=== PATIENT | male | born 1945 | race Caucasian/White ===

== ENCOUNTER → 2016-09-15 | Day surgery (SDC) | payer OTHER, MEDICARE ==
[~2016-09-15] MED LIST: ALLEGRA ALLERG180 M1 PO; ALLEGRA180 MG PO; ASPIR 8181 MG PO; ATIVAN1 MG PO; BENTYL20 M1 PO; COLACE100 MG PO; DOXAZOSIN2 MG PO; LACTULOSE10 GM/15 M PO; LEVOTHYROXINE175 MCG PO; LISINOPRIL2.5 MG PO; LOPRESSOR 25MG25 MG PO; MASON NATURAL325 MG PO; METFORMIN HCL500 MG PO; OMEPRAZOLE D/R20 MG PO; PRAVASTATIN40 MG PO; RISPERIDONE3 M1 PO; RISPERIDONE3 MG PO; SENOKOT NATURA8.6 MG PO; SEROQUEL (MONO200 MG PO; SEROQUEL 100MG100 MG PO; SEROQUEL400 MG PO; SERTRALINE HYDR25 MG PO; SYNTHROID0.112 MG PO; VESICARE 10MG10 MG PO; VITAMIN B12500 MCG PO; ZOFRAN ODT4 M1 PO; ZOFRAN ODT4 M1 SL
--- NOTE | 2016-09-15 16:37 | Operative Report ---
Operative/Inv Procedure Report Surgery Date: 09/15/16 Name of Procedure: left renal ESWL/fluoroscopy Pre-Operative Diagnosis: left renal stone: no hydro. Post-Operative Diagnosis: same Estimated Blood Loss: none Surgeon/Nurse Educator: KYLEIGH ABREU MD Anesthesia: moderate sedation Drains: none Specimens: none Complications: none Operative/Procedure Note Note: The patient was taken to the operating room and placed on the ESWL table in supine position. With the patient awake and participating, timeout was performed to confirm correct identity, procedure, laterality, anesthesia, and other pertinent jessica-operative information. After adequate anesthesia, the patient was positioned so that the patient's left flank was positioned over the table cut-out, overlying the dome of the treatment head. Once the patient was adequately sedated, fluoroscopy, as well as Renal ultrasound was used to locate the LEFT renal stone. Renal US confirmed the presence of the stone which measured it to be approximately 7 mm upper pole stone. The stone was visible with fluoroscopy. Renal US revealed, no hydronephrosis, and no solid tumor, and presence of the stone. The position of the stone was optimized by using fluoroscopy in AP and oblique views;placing the stone within the ESWL c-arm crosshairs. Once the stone's position was optimized, the LEFT renal E.S.W.L. was initiated at low energy level. After noting the patient's tolerance to the shockwaves, the intensitiy was ramped up to maximum level. At the end of the procedure, the left renal stone had dissintegrated. Of note, a total of 2500 shockwaves were delivered to the stone. The patient tolerated the ESWL procedures well, was awakened, then taken to recovery in satisfactory condition via stretcher. The patient was dischared home with pain medications, diet orders, and intructions to catch fragments by straining the urine. The patient to to have follow-up renal ultrasound and KUB in 1 to 2 weeks, prior to follow-up visit in my office. He will then proceed with metabolic stone work-up. Discharge Disposition: PACU CC: KYLEIGH ABREU MD
== END ==
LOC: STS 09-01 07:00
DX: N20.0 Calculus of kidney (principal); Z79.82 Long term (current) use of aspirin; E03.9 Hypothyroidism, unspecified; E11.9 Type 2 diabetes mellitus without complications; Z79.84 Long term (current) use of oral hypoglycemic drugs; F79 Unspecified intellectual disabilities
CPT/HCPCS: J2250

== ENCOUNTER 2017-09-24 10:54 | Emergency (ER) | payer OTHER, MEDICARE ==
[~2017-09-24 10:54] MED LIST changes: -ASPIR 8181 MG PO; +ASPIRIN EC81 M1 PO; +B-12 DOTS500 MCG PO; +COLACE100 M1 PO; -COLACE100 MG PO; +FERROUS SULFAT325 M3 PO; +IBUPROFEN600 M1 PO; +LISINOPRIL2.5 M1 PO; -LISINOPRIL2.5 MG PO; -MASON NATURAL325 MG PO; +MUCINEX600 M1 PO; -OMEPRAZOLE D/R20 MG PO; +OMEPRAZOLE20 M2 PO; -SENOKOT NATURA8.6 MG PO; +SENOKOT8.6 M2 PO; -SEROQUEL 100MG100 MG PO; +SEROQUEL100 M1 PO; -VESICARE 10MG10 MG PO; +VESICARE10 MG PO; -VITAMIN B12500 MCG PO
--- NOTE | 2017-09-24 11:25 | ED UPPER/LOWER EXTREMITY COMPL ---
History of Present Illness General Chief Complaint: Lower Extremity Problems Stated Complaint: LFT LEG CELLULITIS Source: patient, AID Exam Limitations: no limitations Vital Signs & Intake/Output Vital Signs & Intake/Output Vital Signs Date Time Temp Pulse Resp B/P B/P Pulse O2 O2 Flow FiO2 Mean Ox Delivery Rate 09/24 1210 98.4 76 18 124/84 98 Room Air 09/24 1059 98.6 68 18 106/68 98 Room Air Allergies Coded Allergies: cephalexin (UNKNOWN 03/28/16) chlorpromazine (UNKNOWN 03/28/16) erythromycin base (UNKNOWN 03/28/16) oxcarbazepine (UNKNOWN 03/28/16) Reconcile Medications Amoxicillin 875 MG TABLET 1 TAB PO BID cellulitis Amoxicillin 875 MG TABLET 1 TAB PO BID cellulitis Aspirin (Ecotrin*) 81 MG TABLET.DR 1 TAB PO DAILY HEART HEALTH (Reported) Cyanocobalamin (Vitamin B-12) (B-12 Dots) 500 MCG TABLET 1 TAB PO DAILY VITAMIN SUPPORT (Reported) Docusate Sodium (Colace) 100 MG CAPSULE 1 CAP PO DAILY CONSTIPATION (Reported ) Ferrous Sulfate 325 MG (65 MG IRON) TABLET 1 TAB PO DAILY IRON, VITAMIN ( Reported) Fexofenadine HCl (Odilia Allergy) 180 MG TABLET 1 TAB PO DAILY ALLERGIES ( Reported) Levothyroxine Sodium 175 MCG TABLET 1 TAB PO DAILY AC THYROID (Reported) Lisinopril 2.5 MG TABLET 1 TAB PO DAILY HEART (Reported) Omeprazole 20 MG CAPSULE.DR 1 CAP PO DAILY GI (Reported) Quetiapine Fumarate (Seroquel) 100 MG TABLET 1 TAB PO DAILY MENTAL HEALTH ( Reported) Risperidone 3 MG TABLET 1 TAB PO BID MENTAL HEALTH (Reported) Sennosides (Senokot) 8.6 MG TABLET 1 TAB PO DAILY CONSTIPATION (Reported) Solifenacin Succinate (Vesicare) 10 MG TABLET 1 TAB PO DAILY BLADDER ( Reported) Sulfamethoxazole/Trimethoprim (Bactrim Ds Tablet) 800 MG-160 MG TABLET 1 TAB PO BID cellulitis Sulfamethoxazole/Trimethoprim (Bactrim Ds Tablet) 800 MG-160 MG TABLET 1 TAB PO BID cellulitis Triage Note: 71 YO MALE TO TRIAGE WITH PLANT PHYSIOLOGIST FOR EVAL OF ?CELLULITIS TO E. NOTED WITH REDNESS AND WAMRTH TO LOWER EXTREMTIY, UNABLE TO VISULIZE ENITRE LOWER LEG IN TRIAGE. PT C/O PAIN TO LEG. PER PLANT PHYSIOLOGIST, PT WAS RECENTLY TREATED FOR CELLULTIIS Triage Nurses Notes Reviewed? yes Onset: Gradual Duration: week(s): Timing: recent history Severity: moderate Pain/Injury Location: Left: Leg. HPI: 71yo male with hx of DM, mental retardation, left leg cellulitis presents to ED complaining of left lower leg pain today. Patient is poor historian due to MRANNETTE obtained from aid from his [facility]. Patient was recently treated with augmentin for left lower leg cellulitis in August. Cellulitis appeared to have improved following course of abx. They report worsening erythema, swelling and pain to left lower leg today. Patient has wound to left gomez which he fequently scratches. No fevers, chills, vomiting, abdominal pain. (Jenna Issa) Past History Travel History Traveled to [place] past 21 day No Medical History Any Pertinent Medical History? see below for history Neurological: MILD INTELLECTUAL DISABIL EENT: NONE Cardiovascular: CHRONIC PERIODONTITIS, CARDIAC HYPERTROPHY AORTIC STENOSIS MITRAL VALVE PROLASPE Respiratory: NONE Gastrointestinal: GERD, HIATAL HERNIA REFLUX DIVERTICULITIS DYSPHAGIA Hepatic: NONE Renal: HYDRONEPHROSIS STRICTURE OF URETERAL Musculoskeletal: NONE Psychiatric: anxiety, depression, SCHIZOPHRENIA Endocrine: diabetes, HYPOTHYROIDISM Blood Disorders: anemia, IRON DEFICIENCY History of MRSA: No History of VRE: No History of CDIFF: No Surgical History Surgical History: colon resection, aortic valve repair Psychosocial History Who do you live with Other (see notes) Services at Home None What is your primary language Hebrew Tobacco Use: Never used Family History Family History, If Any: Relation not specified for: *No pertinent family history Hx Contributory? No (Jenna Issa) Review of Systems Review of Systems Constitutional: Reports: no symptoms. EENTM: Reports: no symptoms. Respiratory: Reports: no symptoms. Cardiovascular: Reports: no symptoms. Gastrointestinal/Abdominal: Reports: no symptoms. Genitourinary: Reports: no symptoms. Musculoskeletal: Reports: see HPI. Skin: Reports: see HPI. Neurological/Psychological: Reports: no symptoms. Hematologic/Endocrine: Reports: no symptoms. Immunological: Reports: no symptoms. All Other Systems: Reviewed and Negative (Jenna Issa) Physical Exam Physical Exam General Appearance: well developed/nourished, no apparent distress, alert, awake Head: atraumatic, normal appearance Eyes: Bilateral: normal appearance. Ears, Nose, Throat: hearing grossly normal Neck: normal inspection, supple, full range of motion Cardiovascular/Respiratory: normal peripheral pulses, no respiratory distress Peripheral Pulses: 1+ dorsalis pedis (R), 1+ dorsalis pedis (L) Gastrointestinal: nontender Back: normal inspection, normal range of motion Leg Left: 15x3cm healing wound to anterior gomez with surrounding erythema, warmth, and mild swelling, mild tenderness Leg Right: normal range of motion, normal inspection Neurologic/Tendon: normal sensation, normal motor functions Skin: healing wound and erythema as described above (Jenna Issa) Progress Differential Diagnosis: cellulitis, DVT, gout, venous stasis dermatitis Plan of Care: Patient has area of localized cellulitis surrounding chronic wound relating to excoriations. Patient is nontoxic appearing, vital signs are stable. Patient started on Bactrim and amoxicillin antibiotics, cellulitic area circled with pen marker. Patient to return in 2 days for wound check. Patient given referral to [place] [facility] for follow up regarding his chronic wound. Aid given strict return precautions. The patient was discussed with Dr. Carpio who agrees with plan of care. (Jenna Issa) Departure Departure Disposition: HOME OR SELF CARE Condition: Stable Clinical Impression Primary Impression: Cellulitis Qualifiers: Site of cellulitis: extremity Site of cellulitis of extremity: lower extremity Laterality: left Qualified Code: L03.116 - Cellulitis of left lower limb Referrals: Kiana LISA,Rm Calderon (PCP/Family) Additional Instructions: Begin antibiotics as prescribed. Follow-up in 2 days for reevaluation of cellulitis. Return sooner if symptoms are worsening. We are also giving a referral to wound clinic for assessment of chronic wound. Please note that there might be incidental findings in your evaluation that are unrelated to the current emergency department visit. Please notify your primary care doctor about this emergency department visit in order to obtain and review all of the testing performed so that these incidental findings can be monitored as needed. If you had an x-ray performed, please understand that some fractures may not be seen on the initial set of x-rays. If your symptoms persist you might need a repeat set of x-rays to check for such a fracture. If you had a laceration evaluated, please understand that foreign bodies such as glass or wood may not be visible to the naked eye or on plain x-rays. If the wound becomes red, swollen, increasingly more painful or if there is any drainage from the wound, please have it reevaluated by a physician for the possibility of a retained foreign body. If you're unable to follow up as outlined in the discharge instructions please return to the emergency department. Thank you for choosing the [facility] Emergency Department for your care. It was a pleasure to serve you today. Departure Forms: Customer Survey General Discharge Information Prescriptions: Current Visit Scripts Amoxicillin 1 TAB PO BID #20 TAB Sulfamethoxazole/Trimethoprim (Bactrim Ds Tablet) 1 TAB PO BID #20 TAB Amoxicillin 1 TAB PO BID #20 TAB Sulfamethoxazole/Trimethoprim (Bactrim Ds Tablet) 1 TAB PO BID #20 TAB (Erica ARMENTA,Jenna Tuttle) PA/TICKET TAKER Co-Sign Statement Statement: ED Attending supervision documentation- [X] I saw and evaluated the patient. I have also reviewed all the pertinent lab results and diagnostic results. I agree with the findings and the plan of care as documented in the PA's/TICKET TAKER's documentation. [X] I have reviewed the ED Record and agree with the PA's/TICKET TAKER's documentation. [] Additions or exceptions (if any) to the PAs/TICKET TAKER's note and plan are summarized below: [] (Shirin LISA,Jeet Colón)
[2017-09-24] MEDS ORDERED: BACTRIM DS TAB1 EACH PO ×2 (12:01→12:06)
[2017-09-24] MEDS ORDERED: AMOXICILLIN875 M1 PO ×2 (12:01→12:06)
[2017-09-24 12:10] VITALS: BP 124/84
== END 2017-09-24 12:11 ==
LOC: ERH 10:54
DX: L03.116 Cellulitis of left lower limb (principal)

== ENCOUNTER 2017-09-26 14:11 | Inpatient (IN) | payer OTHER, MEDICARE ==
[~2017-09-26] VITALS: Ht 165.1 cm; Wt 67.1 kg
[~2017-09-26 14:11] MED LIST changes: +AMOXICILLIN875 M1 PO; +BACTRIM DS TAB1 EACH PO
--- NOTE | 2017-09-26 15:03 | ED UPPER/LOWER EXTREMITY COMPL ---
History of Present Illness General Chief Complaint: General Adult Stated Complaint: RETURNING FOR ORDERED FOLLOW UP S/P CELLULITIS DX Source: old records, [facility]CTION[employer] SURVEY Exam Limitations: MR Vital Signs & Intake/Output Vital Signs & Intake/Output Vital Signs Date Time Temp Pulse Resp B/P B/P Pulse O2 O2 Flow FiO2 Mean Ox Delivery Rate 09/26 1419 96.7 76 18 127/78 97 Room Air Allergies Coded Allergies: cephalexin (UNKNOWN 03/28/16) chlorpromazine (UNKNOWN 03/28/16) erythromycin base (UNKNOWN 03/28/16) oxcarbazepine (UNKNOWN 03/28/16) Reconcile Medications Amoxicillin 875 MG TABLET 1 TAB PO BID cellulitis Amoxicillin 875 MG TABLET 1 TAB PO BID cellulitis Aspirin (Ecotrin*) 81 MG TABLET.DR 1 TAB PO DAILY HEART HEALTH (Reported) Cyanocobalamin (Vitamin B-12) (B-12 Dots) 500 MCG TABLET 1 TAB PO DAILY VITAMIN SUPPORT (Reported) Docusate Sodium (Colace) 100 MG CAPSULE 1 CAP PO DAILY CONSTIPATION (Reported ) Ferrous Sulfate 325 MG (65 MG IRON) TABLET 1 TAB PO DAILY IRON, VITAMIN ( Reported) Fexofenadine HCl (Odilia Allergy) 180 MG TABLET 1 TAB PO DAILY ALLERGIES ( Reported) Levothyroxine Sodium 175 MCG TABLET 1 TAB PO DAILY AC THYROID (Reported) Lisinopril 2.5 MG TABLET 1 TAB PO DAILY HEART (Reported) Omeprazole 20 MG CAPSULE.DR 1 CAP PO DAILY GI (Reported) Quetiapine Fumarate (Seroquel) 100 MG TABLET 1 TAB PO DAILY MENTAL HEALTH ( Reported) Risperidone 3 MG TABLET 1 TAB PO BID MENTAL HEALTH (Reported) Sennosides (Senokot) 8.6 MG TABLET 1 TAB PO DAILY CONSTIPATION (Reported) Solifenacin Succinate (Vesicare) 10 MG TABLET 1 TAB PO DAILY BLADDER ( Reported) Sulfamethoxazole/Trimethoprim (Bactrim Ds Tablet) 800 MG-160 MG TABLET 1 TAB PO BID cellulitis Sulfamethoxazole/Trimethoprim (Bactrim Ds Tablet) 800 MG-160 MG TABLET 1 TAB PO BID cellulitis Triage Note: PT WAS EVALUATED AND DIAGNOSED WITH LOWER EXTREMITY CELLULITIS LAST WEEK AND RECOMMENDED TO RETURN HERE FOR RE-EVALUATION. Triage Nurses Notes Reviewed? yes Onset: Gradual Duration: constant Timing: recent history Severity: moderate Severity Numbers: 5 HPI: Patient is a 71-year-old male with a past medical history of mental retardation diabetes, hypertension and anxiety schizophrenia and bipolar disorder in which old records indicate the patient was evaluated here on September 24 for concerns of cellulitis to the left leg or patient was prescribed amoxicillin and Bactrim for symptoms and patient returns per requested by the provider for recheck of symptoms Caregivers present in which he states that the infection has not improved History is limited due to patient's MR He has been compliant with his antibiotics (Mika Carranza) Past History Travel History Traveled to [place] past 21 day No Medical History Any Pertinent Medical History? see below for history Neurological: MILD INTELLECTUAL DISABIL EENT: NONE Cardiovascular: CHRONIC PERIODONTITIS, CARDIAC HYPERTROPHY AORTIC STENOSIS MITRAL VALVE PROLASPE Respiratory: NONE Gastrointestinal: GERD, HIATAL HERNIA REFLUX DIVERTICULITIS DYSPHAGIA Hepatic: NONE Renal: HYDRONEPHROSIS STRICTURE OF URETERAL Musculoskeletal: NONE Psychiatric: anxiety, depression, SCHIZOPHRENIA Endocrine: diabetes, HYPOTHYROIDISM Blood Disorders: anemia, IRON DEFICIENCY History of MRSA: No History of VRE: No History of CDIFF: No Surgical History Surgical History: colon resection, aortic valve repair Psychosocial History Who do you live with Other (see notes) Services at Home None What is your primary language Guyanese Tobacco Use: Never used Family History Family History, If Any: Relation not specified for: *No pertinent family history Hx Contributory? No (Mika Carranza) Review of Systems Review of Systems Constitutional: Reports: no symptoms. EENTM: Reports: no symptoms. Respiratory: Reports: no symptoms. Cardiovascular: Reports: no symptoms. Gastrointestinal/Abdominal: Reports: no symptoms. Genitourinary: Reports: no symptoms. Musculoskeletal: Reports: no symptoms. Skin: Reports: see HPI, erythema. Neurological/Psychological: Reports: no symptoms. Hematologic/Endocrine: Reports: no symptoms. Immunological: Reports: no symptoms. All Other Systems: Reviewed and Negative (Mika Carranza) Physical Exam Physical Exam General Appearance: no apparent distress, alert, comfortable Head: atraumatic Eyes: Bilateral: normal appearance. Ears, Nose, Throat: hearing grossly normal Cardiovascular/Respiratory: no respiratory distress Peripheral Pulses: 2+ dorsalis pedis (L) Neurologic/Tendon: normal sensation, normal motor functions, normal tendon functions, responds to pain, no evidence tendon injury, no pulse deficit, motor deficit Diagram Legs Front/Back 1) Noted erythema and warmth tenderness and mild clear discharge (Mika Carranza) Progress Differential Diagnosis: arterial insufficiency, cellulitis, CHF, compartment syndrome, contusion, dislocation, DVT, fracture, septic arthritis, sprain, tendon injury Plan of Care: Orders Procedure Date/time Status Regular Diet 09/27 B Active OXYGEN SETUP (GEN) 09/26 1844 Active Saline Lock 09/26 1844 Active Admit to inpatient 09/26 1844 Active Vital Signs 09/26 1844 Active Activity/Ambulation 09/26 1844 Active Code Status 09/26 1844 Active LACTIC ACID 09/26 1544 Complete BLOOD CULTURE 09/26 153 Active COMPREHENSIVE METABOLIC PANEL 09/26 153 Complete CBC WITHOUT DIFFERENTIAL 09/26 153 Complete Laboratory Tests 09/26/17 184: Lactic Acid Cancelled 09/26/17 1650: Lactic Acid 1.1 09/26/17 165: Anion Gap 11, Estimated GFR > 60, BUN/Creatinine Ratio 17.3, Glucose 106 H, Calcium 8.8, Total Bilirubin 0.3, AST 25, ALT 37, Alkaline Phosphatase 104, Total Protein 6.6, Albumin 3.6, Globulin 3.0, Albumin/Globulin Ratio 1.2, CBC w Diff NO MAN DIFF REQ, RBC 3.71 L, MCV 95.6 H, MCH 32.4 H, MCHC 33.9, RDW 13.8 , MPV 7.2 L, Gran % 64.3, Lymphocytes % 23.2, Monocytes % 8.9, Eosinophils % 3.2, Basophils % 0.4, Absolute Granulocytes 5.2, Absolute Lymphocytes 1.9, Absolute Monocytes 0.7 H, Absolute Eosinophils 0.3, Absolute Basophils 0 Microbiology 09/26 1747 BLOOD: Blood Culture - RECD 09/26 164 BLOOD: Blood Culture - RECD Patient on examination shows no signs of sepsis however patient has been compliant with antibiotics and per old records that seemingly the cellulitis and infectious process has not improved. Patient has failed outpatient treatment with by mouth antibiotics (Mika Carranza) Departure Departure Disposition: STILL A PATIENT Condition: Stable Clinical Impression Primary Impression: Cellulitis of left leg Referrals: Kiana LIAS,Rm Calderon (PCP/Family) Departure Forms: Customer Survey General Discharge Information Admission Note Spoke With: Prashant LISA,Linda Documentation of Exam: Documentation of any treatments & extenuating circumstances including Concerns Regarding Discharge (functional status, medication knowledge or non-compliance, living conditions, etc.) that warrant an admission rather than observation: [ Patient requires IV antibiotics, wound care, repeat labs, pain management,] (Jaylene ARMENTA,Mika) PA/BEAUTY ARTIST Co-Sign Statement Statement: ED Attending supervision documentation- x I saw and evaluated the patient. I have also reviewed all the pertinent lab results and diagnostic results. I agree with the findings and the plan of care as documented in the PA's/BEAUTY ARTIST's documentation. L leg cellulitis worsening on oral antibiotics. [] I have reviewed the ED Record and agree with the PA's/BEAUTY ARTIST's documentation. [] Additions or exceptions (if any) to the PAs/BEAUTY ARTIST's note and plan are summarized below: [] (Fuentes LISA,Khanh)
[2017-09-26 17:01] LABS: ABSOLUTE BASOPHIL COUNT 0 /CUMM (0.0-0.2); ABSOLUTE EOSINOPHIL COUNT 0.3 /CUMM (0.0-0.7); ABSOLUTE GRANULOCYTE CT 5.2 /CUMM (1.4-6.5); ABSOLUTE LYMPH COUNT 1.9 /CUMM (1.2-3.4); ABSOLUTE MONOCYTE COUNT 0.7 /CUMM (0.10-0.60); BASOPHIL % 0.4 % (0.0-2.0); EOSINOPHIL % 3.2 % (0-5); GRANULOCYTE % 64.3 % (42.2-75.2); HEMATOCRIT 35.4 % (42-52); MEAN CORPUSCULAR HGB 32.4 PG (27.0-31.0); MEAN CORPUSCULAR HGB CONC 33.9 G/DL (33.0-37.0); MEAN CORPUSCULAR VOLUME 95.6 FL (80.0-94.0); MEAN PLATELET VOLUME 7.2 FL (7.4-10.4); PLATELET COUNT 188 /CUMM (130-400); RBC DISTRIBUTION WIDTH 13.8 % (11.5-14.5); RED BLOOD CELL CT 3.71 /CUMM (4.70-6.10); WHITE BLOOD CELL COUNT 8.1 /CUMM (4.8-10.8)
[2017-09-26] MEDS ORDERED: LORAZEPAM0.5 M1 PO (19:19)
[2017-09-26] MEDS ORDERED: ATIVAN1 M1 PO (19:20)
[2017-09-26] MEDS ORDERED: PERIOGARD473 ML PO (19:23)
[2017-09-26] MEDS ORDERED: LACTULOSE10 GM/153 PO (19:24)
[2017-09-26] MEDS ORDERED: CARDURA2 M1 PO (19:25)
[2017-09-26] MEDS ORDERED: METOPROLOL TART25 M1 PO (19:25)
[2017-09-26] MEDS ORDERED: LATANOPROST2.5 ML OU (19:26)
[2017-09-26] MEDS ORDERED: RISPERDAL4 M1 PO (19:26)
[2017-09-26] MEDS ORDERED: PRAVACHOL40 M1 PO (19:27)
[2017-09-26] MEDS ORDERED: SERTRALINE HCL50 MG PO (19:27)
[2017-09-26] MEDS ORDERED: SEROQUEL400 M1 PO (19:28)
[2017-09-26] MEDS ORDERED: CALDESENE BABY142 GM TOP (19:29)
[2017-09-26] MEDS ORDERED: A AND D OINTM42.5 GM TOP (19:30)
[2017-09-26] MEDS ORDERED: AMOXICILLIN500 M2 PO (19:31)
[2017-09-26] MEDS ORDERED: AFRIN30 ML NASB (19:32)
[2017-09-26] MEDS ORDERED: DIABETIC T100 MG/51 PO (19:33)
[2017-09-26] MEDS ORDERED: HYDROCORTISO453.6 G1 TOP (19:34)
[2017-09-26] MEDS ORDERED: LOPERAMIDE2 M2 PO (19:34)
[2017-09-26] MEDS ORDERED: ADVIL200 M2 PO (19:35)
[2017-09-26] MEDS ORDERED: BACITRACIN28.4 GM TOP (19:36)
--- NOTE | 2017-09-26 19:36 | Admission Certification ---
Admission Certification Certification Statement - As attending physician, I certify that at the time of - admission, based on clinical presentation, severity of - symptoms, need for further diagnostic testing and - therapeutic interventions, and risk of adverse outcomes - without in-hospital treatment, in my clinical assessment, - this patient requires an acute hospital stay for a minimum - of two nights or longer. I have also considered psychsocial - factors such as support system, advanced age, financial - issues, cognitive issues, and failed out-patient treatments, - past re-admission history, safety of patient, and lack of - compliance as applicable. Specific rationale supporting this admission is: Left leg cellulitis, failed outpatient therapy.
[2017-09-26] MEDS ORDERED: PAIN & FEVER325 M1 PO (19:37)
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
[2017-09-26 21:17] VITALS: BP 141/70
[2017-09-27 06:42] VITALS: BP 136/66
[2017-09-27 09:25] LABS: ABSOLUTE BASOPHIL COUNT 0 /CUMM (0.0-0.2); ABSOLUTE EOSINOPHIL COUNT 0.3 /CUMM (0.0-0.7); ABSOLUTE GRANULOCYTE CT 4.1 /CUMM (1.4-6.5); ABSOLUTE MONOCYTE COUNT 0.7 /CUMM (0.10-0.60); BASOPHIL % 0.6 % (0.0-2.0); EOSINOPHIL % 4.3 % (0-5); GRANULOCYTE % 57.5 % (42.2-75.2); HEMATOCRIT 34.2 % (42-52); MEAN CORPUSCULAR HGB 32.4 PG (27.0-31.0); MEAN CORPUSCULAR HGB CONC 33.8 G/DL (33.0-37.0); MEAN CORPUSCULAR VOLUME 95.8 FL (80.0-94.0); MEAN PLATELET VOLUME 7.6 FL (7.4-10.4); PLATELET COUNT 165 /CUMM (130-400); RBC DISTRIBUTION WIDTH 13.9 % (11.5-14.5); RED BLOOD CELL CT 3.57 /CUMM (4.70-6.10); WHITE BLOOD CELL COUNT 7.1 /CUMM (4.8-10.8)
[2017-09-27 15:32] VITALS: BP 102/61
--- NOTE | 2017-09-27 17:14 | PN- Att Addend ---
Attending Addendum Attending Brief Note 71M PMH intellectual disabilities, mild MR, HTN, T2DM on diet control, schizophrenia, bipolar disorder, anxiety, aortic stenosis s/p valve repair (2012 ), HOCM, SUZAN, hypothyroidism, GERD, nephrolithiasis presenting with LLE cellulitis, given Bactrim and Amoxicillin 4 days ago with worsening of erythema and pain, without systemic symptoms. Patient reports left leg pain today. He requests lotion as it makes it feel better. Afebrile, stable vitals, labs reviewed. Leg appears erythematous with post-surgical scarring on either side of gomez without discharge. 1. LLE cellulitis 2. Failure of outpatient therapy Plan - Continue on general medicine - Start Eucerin for discomfort - Tylenol for mild pain, Percocet for severe - Continue home medications - Follow cultures - Leg elevation - DVT PPx
[2017-09-27 21:47] VITALS: BP 126/78
[2017-09-28 05:36] VITALS: BP 122/80
--- NOTE | 2017-09-28 07:37 | PN- Housestaff ---
Alee Schumacher 09/28/17 0737: Subjective Follow-up For: -LE cellulitis Complaints: no complaints Subjective: Seen and examined the patient today morning, his left lower extremity did look a little bit erythematous however the duration seems to have gone down compared to the marking that existed on the skin. He does not offer any new complaints. He was aware that he is at [facility], we will transition to by mouth antibiotics tomorrow and possible discharge to prison Review of Systems Constitutional: Reports: see HPI. Objective Last 24 Hrs of Vital Signs/I&O Vital Signs Date Time Temp Pulse Resp B/P B/P Pulse O2 O2 Flow FiO2 Mean Ox Delivery Rate 09/28 1423 98.3 65 20 100/50 95 Room Air 09/28 1046 71 120/62 09/28 0536 97.7 66 18 122/80 93 Room Air 09/27 2233 78 126/78 09/27 2147 98.2 78 18 126/78 96 Room Air Intake & Output 09/28 1600 09/28 0800 09/28 0000 Intake Total 1540 730 Output Total Balance 1540 730 Intake, IV 100 250 Intake, Oral 1440 480 Number 0 0 Bowel Movements Physical Exam General Appearance: Alert, Oriented X3, Cooperative, No Acute Distress Skin: left lower extremity erythematous, redness and induration, swelling present below the knee, scratch barclay present with breakdown of skin over the gomez HEENT: Atraumatic, PERRLA, EOMI Cardiovascular: Normal S1, Normal S2, No Murmurs Lungs: Clear to Auscultation, Normal Air Movement Abdomen: Normal Bowel Sounds, Soft, No Tenderness Extremities: as above under skin findings Vascular: Normal Pulses Current Medications: Current Medications Sig/Deb Start time Last Medication Dose Route Stop Time Status Admin Acetaminophen 325 MG Q6P PRN 09/27 1715 AC PO Ampicillin Sodium/ 1,500 MG Q6 09/26 2359 09/28 Sulbactam Sodium IV 1734 Sodium Chloride 100 ML Chlorhexidine 15 ML BID 09/27 0909/28 Gluconate PO 1046 Cyanocobalamin 500 MCG DAILY 09/27 0900 AC 09/28 PO 1055 Docusate Sodium 100 MG DAILY 09/27 0909/28 PO 1041 Glycerin/Mineral Oil 1 QUINCY TID PRN 09/27 1715 AC 09/28 TOP 1046 Guaifenesin 10 ML Q4H PRN 09/27 0215 AC PO Heparin Sodium 5,000 UNIT Q8 09/26 2200 AC 09/28 (Porcine) SC 1401 Latanoprost 1 GTT QPM 09/27 2100 AC 09/27 OPH 2232 Levothyroxine Sodium 0.175 MG DAILY AC 09/27 0700 AC 09/28 PO 0540 Lorazepam 0.5 MG BID 09/27 0900 AC 09/28 PO 10/04 0859 1047 Lorazepam 1 MG AT BEDTIME 09/26 2200 AC 09/27 PO 2231 Metoprolol Tartrate 25 MG BID 09/27 0900 AC 09/28 PO 1046 Omeprazole 20 MG DAILY 09/27 0900 AC 09/28 PO 1041 Oxybutynin Chloride 10 MG DAILY 09/27 0900 AC 09/28 PO 1040 Oxycodone/ 1 TAB Q6P PRN 09/27 1715 AC 09/27 Acetaminophen PO 1935 Pravastatin Sodium 40 MG 1700 09/27 1700 AC 09/28 PO 1734 Quetiapine Fumarate 100 MG QAM 09/27 0900 AC 09/28 PO 1041 Quetiapine Fumarate 400 MG QPM 09/26 2200 AC 09/27 PO 2232 Risperidone 4 MG BID 09/26 2200 AC 09/28 PO 1040 Senna/Docusate Sodium 1 TAB BID PRN 09/27 0230 AC PO Sertraline HCl 75 MG AT BEDTIME 09/27 2100 AC 09/27 PO 2232 Zinc Oxide 1 QUINCY BID PRN 09/27 0230 AC 09/27 TOP 0900 Lines/Diet/Fluids Restraints: none Assessment/Plan Assessment: Mr. Clemens is a 71-year-old male here with concerns for cellulitis of the left leg. Past medical history : To retardation, diabetes, hypertension, anxiety, cyst of hernia, bipolar, hiatal hernia, GERD, hypothyroidism. He was recently evaluated on 24 of September for concerns of cellulitis of the left leg, was prescribed amoxicillin and Bactrim, however due to worsening swelling of the lower extremity was sent in for further evaluation. He was afebrile on presentation and his vitals were mostly stable, he was saturating 97% on room air. He did not have a white count, basal metabolic panel was normal, however he was admitted to hospital for treatment of cellulitis of the low-fat lower extremity due to edema and redness of the left lower extremity with swelling, lesions from scratching of the left lower extremity, no purulent discharge. Problem list along with assessment and plan 1. left lower extremity cellulitis : He was started on IV Unasyn after failing outpatient treatment with Bactrim and amoxicillin, he continues to be on date to off IV Unasyn 1.5 g every 8 hours, we will change him to by mouth Keflex tomorrow to complete a total of 5 days of antibiotic course. Left lower extremity Doppler was done with no evidence of deep vein thrombosis. Cultures did not show any growth after day 1 Anticipated discharge tomorrow, otherwise stable. His home medication of Zoloft 75 mg at bedtime, pravastatin 40 mg daily, quetiapine 100 mg every morning oxybutynin 10 mg daily, Prilosec 20 mg daily, Lopressor 25 mg twice a day, Ativan 0.5 mg twice a day vitamin B12 500 g daily, Synthroid 0.175 mg daily, risperidone 4 mg twice a day, quetiapine 400 mg every afternoon were continued during his hospital stay and no changes were made to this home medications. fc cc-3 dvt px heparin Problem List: 1. Cellulitis of left leg 2. Cellulitis Pain Ratin Pain Location: lle Pain Goal: Remain pain free Pain Plan: tylenol Tomorrow's Labs & Rationales: not needed Discharge Plan Discharge Disposition: home Stable for Discharge? No Anticipated Discharge (Day): tomorrow If Discharged Today/In 24 Hrs: CMR done Stormy Combs 09/28/17 1617: Attending MD Review Statement Attending Statement Attending MD Statement: examined this patient, discuss w/resident/PA/HR ANALYST, agreed w/resident/PA/HR ANALYST, reviewed EMR data (avail), discussed with nursing, discussed with case mgmt Attending Assessment/Plan: Doppler LE negative for dvt. LE cellulitis - on unasyn. Plan [facility] to prison tomorrow. d/w pt the care plan.
--- NOTE | 2017-09-28 10:45 | ULTRASOUND REPORT ---
EXAMINATION: US TRIPLEX LOWER EXTREMITY, LEFT CLINICAL INFORMATION: Cellulitis. Swelling. COMPARISON: None TECHNIQUE: Color-flow triplex imaging with spectral analysis and compression Doppler were performed on the lower extremity. FINDINGS: Respiratory variation, normal compression and augmented flow are noted throughout the left lower extremity. The visualized common femoral vein, superficial femoral vein, profunda femoral vein, popliteal vein and midcalf posterior tibial venous segments show no evidence of deep venous thrombosis. The peroneal veins are not visualized due to edema and scar tissue. There is no Enriquez's cyst. IMPRESSION: No evidence of deep venous thrombosis involving the left lower extremity.
--- NOTE | 2017-09-28 12:36 | Patient Discharge Instructions ---
Discharge Instructions General Discharge Information You were seen/treated for: cellulitis Special Instructions: please ct to follow up with your PCP within one week of discharge. please ct to take your medications as prescribed. Diet Continue normal diet: No Recommended Diet: consistent carbohydrate diet -3 Acute Coronary Syndrome Inclusion Criteria At DC or during hospital stay patient has or had the following: ACS DIAGNOSIS No Discharge Core Measures Meds if any: Prescribed or Continued at Discharge Meds if any: NOT Prescribed or Continued at Discharge Congestive Heart Failure Inclusion Criteria At DC or during hospital stay patient has or had the following: CHF DIAGNOSIS No Discharge Core Measures Meds if any: Prescribed or Continued at Discharge Meds if any: NOT Prescribed or Continued at Discharge Cerebrovascular accident Inclusion Criteria At DC or during hospital stay patient has or had the following: CVA/TIA Diagnosis No Discharge Core Measures Meds if any: Prescribed or Continued at Discharge Meds if any: NOT Prescribed or Continued at Discharge Venous thromboembolism Inclusion Criteria VTE Diagnosis No VTE Type NONE VTE Confirmed by (Test) NONE Discharge Core Measures - Per Current guidelines, there needs to be overlap - treatment for the first 5 days of Warfarin therapy. - If discharged on Warfarin prior to 5 days of - overlap therapy, the patient will need to be - assessed for post discharge needs including - *Post discharge parental anticoagulation - *Warfarin and/or parental anticoagulation education - *Follow up date to check INR post discharge At least 5 days overlap therapy as Inpatient No Meds if any: Prescribed or Continued at Discharge Note: Overlap Therapy is Warfarin and Anticoagulant Meds if any: NOT Prescribed or Continued at Discharge
[2017-09-28 14:23] VITALS: BP 100/50
[2017-09-28 21:49] VITALS: BP 110/64
[2017-09-29 07:01] VITALS: BP 148/78
--- NOTE | 2017-09-29 07:41 | PN- Housestaff ---
Alee Schumacher 09/29/17 0741: Subjective Follow-up For: -cellulitis Subjective: Seen and examined the patient today morning, his lower extremity swelling is improved from before, however he continues to scratch, perhaps we will bandage the lower extremity that so that he does not continue to scratch on it. Anticipated stress today, will give 2 more days of by mouth antibiotic Review of Systems Constitutional: Reports: see HPI. Objective Last 24 Hrs of Vital Signs/I&O Vital Signs Date Time Temp Pulse Resp B/P B/P Pulse O2 O2 Flow FiO2 Mean Ox Delivery Rate 09/29 1110 70 145/72 09/29 0800 94 Room Air 09/29 0701 97.9 71 18 148/78 94 09/28 2149 98.0 68 18 110/64 94 Room Air 09/28 2023 68 110/64 Intake & Output 09/29 1600 09/29 0800 09/29 0000 Intake Total 150 1050 Output Total Balance 150 1050 Intake, IV 100 Intake, Oral 150 950 Physical Exam General Appearance: Alert, Oriented X3, Cooperative, No Acute Distress Cardiovascular: Normal S1, Normal S2, No Murmurs Lungs: Clear to Auscultation, Normal Air Movement Abdomen: Normal Bowel Sounds, Soft, No Tenderness Extremities: LLE redness, erythme below knee with scratching marsk overthe area Vascular: Normal Pulses Current Medications: Current Medications Sig/Deb Start time Last Medication Dose Route Stop Time Status Admin Acetaminophen 325 MG Q6P PRN 09/27 1715 DCD PO Ampicillin Sodium/ 1,500 MG Q6 09/26 2359 DC 09/29 Sulbactam Sodium IV 0559 Sodium Chloride 100 ML Cephalexin 500 MG Q6 09/29 0742 CAN PO Chlorhexidine 15 ML BID 09/27 0900 DCD 09/29 Gluconate PO 1103 Cyanocobalamin 500 MCG DAILY 09/27 0900 DCD 09/29 PO 1102 Docusate Sodium 100 MG DAILY 09/27 0900 DCD 09/29 PO 1102 Glycerin/Mineral Oil 1 QUINCY TID PRN 09/27 1715 DCD 09/29 TOP 1103 Guaifenesin 10 ML Q4H PRN 09/27 0215 DCD PO Heparin Sodium 5,000 UNIT Q8 09/26 2200 DCD 09/29 (Porcine) SC 0559 Latanoprost 1 GTT QPM 09/27 2100 DCD 09/28 OPH 2023 Levothyroxine Sodium 0.175 MG DAILY AC 09/27 0700 DCD 09/29 PO 0559 Lorazepam 0.5 MG BID 09/27 0900 DCD 09/29 PO 10/04 0859 1101 Lorazepam 1 MG AT BEDTIME 09/26 2200 DCD 09/28 PO 2022 Metoprolol Tartrate 25 MG BID 09/27 0900 DCD 09/29 PO 1110 Omeprazole 20 MG DAILY 09/27 0900 DCD 09/29 PO 1102 Oxybutynin Chloride 10 MG DAILY 09/27 0900 DCD 09/29 PO 1101 Oxycodone/ 1 TAB Q6P PRN 09/27 1715 DCD 09/27 Acetaminophen PO 1935 Patient Medication 1 ED ONE ONE 09/29 1045 DC 09/29 Teaching ED 09/29 1046 1212 Patient Medication 1 ED ONE ONE 09/28 1815 DC 09/28 Teaching ED 09/28 1816 2023 Pravastatin Sodium 40 MG 1700 09/27 1700 DCD 09/28 PO 1734 Quetiapine Fumarate 100 MG QAM 09/27 0900 DCD 09/29 PO 1102 Quetiapine Fumarate 400 MG QPM 09/26 2200 DCD 09/28 PO 2023 Risperidone 4 MG BID 09/26 2200 DCD 09/29 PO 1102 Senna/Docusate Sodium 1 TAB BID PRN 09/27 0230 DCD PO Sertraline HCl 75 MG AT BEDTIME 09/27 2100 DCD 09/28 PO 2022 Zinc Oxide 1 QUINCY BID PRN 09/27 0230 DCD 09/27 TOP 0900 Lines/Diet/Fluids Restraints: none Assessment/Plan Assessment: Mr. Clemens is a 71-year-old male with past medical history of mental retardation, diabetes mellitus, hypertension, anxiety, bipolar, hiatal hernia, GERD, hypothyroidism evaluated on 24 of September for concerns of cellulitis of the left leg, previously treated with amoxicillin and Bactrim as outpatient was [facility] to [facility] on 09[facility]26[facility]2017 after failing outpatient therapy and worsening erythema and redness of the left lower extremity below-knee. The swelling was also associated with extreme pain and scratching of the side that was erythematous and edematous. On admission he was afebrile, vitals were stable, he was saturating 97% on room air. He was found to have a normal white count, however he was admitted for treatment of cellulitis due to worsening edema and erythema and redness of the left lower extremity in spite of outpatient antibiotic treatment. Problem list along with assessment and plan. Left lower extremity cellulitis : Mr Jane was started on Unasyn 1.5 g daily, was given 2 days of IV Unasyn and transitioned to by mouth antibiotics ( augmentin). Due his allergy to Keflex was not being able to verify, he was started on by mouth Augmentin for a total of 5 days of antibiotics. His swelling and erythema continued to improve, he did not show signs of systemic infection during the entire hospital course. Left lower extremity Doppler was done to rule out deep vein thrombosis. Blood Cultures did not show any growth after day.He was continued on rest of his home medication while inpatient. His other chronic problems including type 2 diabetes mellitus, bipolar disorder, schizophrenia, hypothyroidism, and deficiency anemia which were continued treatment on the home medications that he was on. Problem List: 1. Cellulitis of left leg Pain Ratin Pain Location: LLE Pain Goal: Remain pain free Pain Plan: current plan Tomorrow's Labs & Rationales: .. Stormy Combs 09/29/17 1355: Attending MD Review Statement Attending Statement Attending MD Statement: examined this patient, discuss w/resident/PA/COMPLIANCE DIRECTOR, agreed w/resident/PA/COMPLIANCE DIRECTOR, reviewed EMR data (avail), discussed with nursing, discussed with case mgmt Attending Assessment/Plan: dc back to intermediate today in stable condition. see dc summary for more details. Po abx for 3 more days to complete the course for LLE cellulitis. d/w pt the care plan.
[2017-09-29] MEDS ORDERED: KEFLEX500 M1 PO (07:44)
--- NOTE | 2017-09-29 07:44 | Discharge Summary ---
Visit Information Visit Dates Admission Date: 09/26/17 Discharge Date: 09/29/2017 Hospital Course Course Attending Physician: Stormy Combs MD Primary Care Physician: Rm Bruno MD Hospital Course: Mr. Clemens is a 71-year-old male with past medical history of mental retardation, diabetes mellitus, hypertension, anxiety, bipolar, hiatal hernia, GERD, hypothyroidism evaluated on 24 of September for concerns of cellulitis of the left leg, previously treated with amoxicillin and Bactrim as outpatient was admitted to [facility] on 09/26/2017 after failing outpatient therapy and worsening erythema and redness of the left lower extremity below-knee. The swelling was also associated with extreme pain and scratching of the side that was erythematous and edematous. On admission he was afebrile, vitals were stable, he was saturating 97% on room air. He was found to have a normal white count, however he was admitted for treatment of cellulitis due to worsening edema and erythema and redness of the left lower extremity in spite of outpatient antibiotic treatment. Problem list along with assessment and plan. Left lower extremity cellulitis : Patient was admitted as she failed outpatient antibiotic treatment, was started on Unasyn 1.5 g daily, was given 2 days of IV Unasyn and transitioned to by mouth antibiotics. As his allergy to Keflex was not being able to verify, he was started on by mouth Augmentin for a total of 5 days of antibiotics. His swelling and erythema continued to improve, he did not show signs of systemic infection during the entire hospital course. Left lower extremity Doppler was done to rule out deep vein thrombosis. Blood Cultures did not show any growth after day.He was continued on rest of his home medication while inpatient. His other chronic problems including type 2 diabetes mellitus, bipolar disorder, schizophrenia, hypothyroidism, and deficiency anemia which were continued treatment on the home medications that he was on. Allergies: Coded Allergies: cephalexin (UNKNOWN 03/28/16) chlorpromazine (UNKNOWN 03/28/16) erythromycin base (UNKNOWN 03/28/16) oxcarbazepine (UNKNOWN 03/28/16) Significant Procedures: SERVICE DATE: 09/28/17- EXAM TYPE: US - US-UNILATERAL VENOUS DOPPLER EXAMINATION: US TRIPLEX LOWER EXTREMITY, LEFT CLINICAL INFORMATION: Cellulitis. Swelling. COMPARISON: None TECHNIQUE: Color-flow triplex imaging with spectral analysis and compression Doppler were performed on the lower extremity. FINDINGS: Respiratory variation, normal compression and augmented flow are noted throughout the left lower extremity. The visualized common femoral vein, superficial femoral vein, profunda femoral vein, popliteal vein and midcalf posterior tibial venous segments show no evidence of deep venous thrombosis. The peroneal veins are not visualized due to edema and scar tissue. There is no Enriquez's cyst. IMPRESSION: No evidence of deep venous thrombosis involving the left lower extremity. Disposition Summary Disposition Principal Diagnosis: left lower extremity cellulitis Additional Diagnosis: DM bipolar schizophrenia Mental retardation Discharge Disposition: senior care Discharge Instructions General Discharge Information Code Status: Full Code Patient's Diet: regular Patient's Activity: as tolerated Follow-Up Instructions/Appts: follow up with your PCP within one week of discharge Medications at Discharge Discharge Medications: Continue taking these medications: Solifenacin Succinate (Vesicare) 10 MG TABLET 1 Tablet ORAL DAILY Quetiapine Fumarate (Seroquel) 100 MG TABLET 1 Tablet ORAL Every Morning Docusate Sodium (Colace) 100 MG CAPSULE 1 Capsule ORAL DAILY Omeprazole (Omeprazole) 20 MG CAPSULE.DR 1 Capsule ORAL DAILY Lisinopril (Lisinopril) 2.5 MG TABLET 1 Tablet ORAL DAILY Ferrous Sulfate (Ferrous Sulfate) 325 MG (65 MG IRON) TABLET 1 Tablet ORAL DAILY Cyanocobalamin (Vitamin B-12) (B-12 Dots) 500 MCG TABLET 1 Tablet ORAL DAILY Sennosides (Senokot) 8.6 MG TABLET 1 Tablet ORAL DAILY Levothyroxine Sodium (Levothyroxine Sodium) 175 MCG TABLET 1 Tablet ORAL DAILY BEFORE BREAKFAST Fexofenadine HCl (Odilia Allergy) 180 MG TABLET 1 Tablet ORAL DAILY Lorazepam (Lorazepam) 0.5 MG TABLET 1 Tablet ORAL TWICE DAILY LORazepam (Ativan) 1 MG TAB 1 Tablet ORAL TAKE AT BEDTIME Chlorhexidine Gluconate (Periogard) 0.12 % MOUTHWASH 15 Milliliters ORAL TWICE DAILY Lactulose (Lactulose) 10 GRAM/15 ML SOLUTION 30 Milliliters ORAL TWICE DAILY Doxazosin Mesylate (Cardura) 2 MG TABLET 1 Tablet ORAL TWICE DAILY Metoprolol Tartrate (Metoprolol Tartrate) 25 MG TABLET 1 Tablet ORAL TWICE DAILY Risperidone (Risperdal) 4 MG TABLET 1 Tablet ORAL TWICE DAILY Latanoprost (Latanoprost) 0.005 % DROPS 1 Drop Both Eyes Every night Pravastatin Sodium (Pravachol) 40 MG TABLET 1 Tablet ORAL DAILY Sertraline HCl (Sertraline HCl) 50 MG TABLET 1.5 Tablet ORAL TAKE AT BEDTIME Quetiapine Fumarate (Seroquel) 400 MG TABLET 1 Tablet ORAL TAKE AT BEDTIME Zinc Oxide/[place] Starch (Caldesene Baby Powder) (Unknown Strength) POWDER 1 Application On the skin TWICE DAILY as needed for MINOR RASH Vits A and D/White Pet/Lanolin (A and D Ointment) (Unknown Strength) OINT...G. Unknown Dose On the skin TWICE DAILY Oxymetazoline HCl (Afrin) 0.05 % SPRAY 1 [place] Both sides of nose TWICE DAILY as needed for NASAL CONGESTION Guaifenesin (Diabetic Tussin Ex) 100 MG/5 ML LIQUID 10 Milliliters ORAL Q4H as needed for COUGH Hydrocortisone (Hydrocortisone) 1 % CREAM..G. 1 Application On the skin TWICE DAILY as needed for ITCHY SMALL RASH/BUG BITES Instructions: apply to affected area(s) Loperamide HCl (Loperamide) 2 MG CAPSULE 2 Capsule ORAL as needed for DIARRHEA Ibuprofen (Advil) 200 MG TABLET 2 Tablet ORAL Q6H as needed for PAIN/TEMP>102 Bacitracin (Bacitracin) 500 UNIT/GRAM OINT...G. 1 Application On the skin TWICE DAILY as needed for AA OR WOUND UNTIL DRY, SCABBED Instructions: apply to affected area(s) Acetaminophen (Pain & Fever) 325 MG TABLET 2 Tablet ORAL Q6H as needed for PAIN/TEMP 100.5 TO 102 Start taking the following new medications: Amoxicillin/Potassium Clav (Augmentin 875-125 Tablet) 875 MG-125 MG TABLET 1 Tablet ORAL TWICE DAILY Qty = 5 No Refills Copies To: Kiana LISA,Rm Calderon Attending Review Statement Documenting Attending: Lauryn LISA,Stormy Gunderson
[2017-09-29] MEDS ORDERED: AUGMENTIN 875-1 EACH PO ×2 (09:26→12:12)
[2017-09-29 11:10] VITALS: BP 145/72
== END 2017-09-29 13:45 | disposition home health service (06) | DRG 603 ==
LOC: ERH 14:11 → ERHI 18:45 → 2NB 18:45 → ENRESERV 20:00 → ENTRNSPT 20:40 → 2NB 20:57 → CMPTRNSPT 21:09 → 2NB 09-27 21:28 → ENPENDDIS 09-29 12:23 → ENTRNSPT 09-29 13:35 → EDTRNSPT 09-29 13:39 → EDTRNSPTSTS 09-29 13:39 → 2NB 09-29 13:45 → CMPTRNSPT 09-29 13:49
PROVIDERS: Internal Medicine Endocrinology, Diabetes & Metabolism; Physician Assistant
DX: L03.116 Cellulitis of left lower limb (principal); I42.1 Obstructive hypertrophic cardiomyopathy; I10 Essential (primary) hypertension; K21.9 Gastro-esophageal reflux disease without esophagitis; K44.9 Diaphragmatic hernia without obstruction or gangrene; E03.9 Hypothyroidism, unspecified; F79 Unspecified intellectual disabilities; F41.8 Other specified anxiety disorders; F20.9 Schizophrenia, unspecified; D50.9 Iron deficiency anemia, unspecified; F31.9 Bipolar disorder, unspecified; Z88.1 Allergy status to other antibiotic agents; F41.9 Anxiety disorder, unspecified; Z90.49 Acquired absence of other specified parts of digestive tract; E11.9 Type 2 diabetes mellitus without complications
CPT/HCPCS: 2NBP; 2NBSP; 36592; 82436; 87040; 93005; 93010; 96374; 97116-GO; 97161-GP; J1644

== ENCOUNTER 2017-12-06 11:08 | Inpatient (IN) | payer OTHER, MEDICARE ==
[~2017-12-06] VITALS: Ht 160 cm; Wt 81.6 kg
[~2017-12-06 11:08] MED LIST changes: +A AND D OINTM42.5 GM TOP; +ADVIL200 M2 PO; +AFRIN30 ML NASB; +AMOXICILLIN500 M2 PO; +ATIVAN1 M1 PO; +AUGMENTIN 875-1 EACH PO; +BACITRACIN28.4 GM TOP; +CALDESENE BABY142 GM TOP; +CARDURA2 M1 PO; +DIABETIC T100 MG/51 PO; +HYDROCORTISO453.6 G1 TOP; +KEFLEX500 M1 PO; +LACTULOSE10 GM/153 PO; +LATANOPROST2.5 ML OU; +LOPERAMIDE2 M2 PO; +LORAZEPAM0.5 M1 PO; +METOPROLOL TART25 M1 PO; +PAIN & FEVER325 M1 PO; +PERIOGARD473 ML PO; +PRAVACHOL40 M1 PO; +RISPERDAL4 M1 PO; +SEROQUEL400 M1 PO; +SERTRALINE HCL50 MG PO
[2017-12-06 12:45] LABS: ABSOLUTE BASOPHIL COUNT 0.1 /CUMM (0.0-0.2); ABSOLUTE EOSINOPHIL COUNT 0.3 /CUMM (0.0-0.7); ABSOLUTE GRANULOCYTE CT 7.6 /CUMM (1.4-6.5); ABSOLUTE LYMPH COUNT 1.8 /CUMM (1.2-3.4); ABSOLUTE MONOCYTE COUNT 0.6 /CUMM (0.10-0.60); BASOPHIL % 0.6 % (0.0-2.0); EOSINOPHIL % 2.9 % (0-5); GRANULOCYTE % 72.7 % (42.2-75.2); HEMATOCRIT 37.2 % (42-52); MEAN CORPUSCULAR HGB 32.3 PG (27.0-31.0); MEAN CORPUSCULAR HGB CONC 33.7 G/DL (33.0-37.0); MEAN CORPUSCULAR VOLUME 95.9 FL (80.0-94.0); PLATELET COUNT 190 /CUMM (130-400); RBC DISTRIBUTION WIDTH 13.1 % (11.5-14.5); RED BLOOD CELL CT 3.88 /CUMM (4.70-6.10); WHITE BLOOD CELL COUNT 10.4 /CUMM (4.8-10.8)
--- NOTE | 2017-12-06 13:02 | RADIOLOGY REPORT ---
EXAMINATION: XR CHEST CLINICAL INFORMATION: Cough and fever. COMPARISON: CXR from 07/16/2017. Chest CT from 12/04/2017. TECHNIQUE: 2 views of the chest were obtained. FINDINGS: Lungs are symmetrically expanded. As noted on the chest CT examination, bronchial waite appear mildly thickened. No acute pulmonary edema, consolidation or pleural effusion. Cardiac size is normal. Aortic valve is replaced. Sternotomy wires are intact. Again noted is the hiatal hernia. No acute osseous abnormality. IMPRESSION: - Hiatal hernia. - Bronchial waite appear thickened, suggestive of airway inflammation; however, no evidence of pneumonia. No new findings compared the chest CT of 12/04/2017.
[2017-12-06] MEDS ORDERED: ASPIRIN EC81 M1 PO (15:00)
--- NOTE | 2017-12-06 15:36 | Admission Certification ---
Admission Certification Certification Statement - As attending physician, I certify that at the time of - admission, based on clinical presentation, severity of - symptoms, need for further diagnostic testing and - therapeutic interventions, and risk of adverse outcomes - without in-hospital treatment, in my clinical assessment, - this patient requires an acute hospital stay for a minimum - of two nights or longer. I have also considered psychsocial - factors such as support system, advanced age, financial - issues, cognitive issues, and failed out-patient treatments, - past re-admission history, safety of patient, and lack of - compliance as applicable. Specific rationale supporting this admission is: Cellulitis in patient with diabetes and mental retardation.
--- NOTE | 2017-12-06 15:42 | History & Physical ---
Scott German 12/06/17 1541: General Information and HPI MD Statement: I have seen and personally examined HOWARD RAMIREZ and documented this H&P. The patient is a 72 year old M who presented with a patient stated chief complaint of [left gomez cellulitis]. Source of Information: old records, custodial staff Exam Limitations: poor historian, Mental retardation History of Present Illness: Mr. Ramirez is a 72-year-old man with past medical history significant for mental retardation, diabetes mellitus, hypertension, anxiety, bipolar disorder, GERD, hypothyroidism, scoliosis, urethral stricture and urinary incontinence, and previous left gomez cellulitis (August 2017) who is brought to the ER by the staff of [facility] due to redness and discharge on the same site of previous cellulitis on left lower extremity. He is not verbally communicative, and mentally retarded. During the interview he does not seem to be in any acute distress. Based on the history from the custodial care facility staff he had fever for 2 days prior to admission and also occasional cough. After the previous admission for left lower extremity cellulitis he was visited by a occupational health specialist. Previously he was on amoxicillin and Bactrim. At the custodial they change the dressing daily and apply bacitracin on the site of cellulitis. They do not report chills. They mentioned that since he is not observed at all times he scratches the site of cellulitis which causes more swelling, discharge and oozing. They do not report any difficulty swallowing, constipation, diarrhea, but they do report that the patient has urinary incontinence. He has a remote history of skin graft and surgery on the same lower extremity many years ago, old scar tissue on both sides of calf are visible. Past medical history: Mental retardation, diabetes mellitus, hypertension, anxiety, bipolar disorder, hiatal hernia, GERD, hypothyroidism, left leg cellulitis on August 2017, scoliosis, urethral stricture, urinary incontinence. Family history: It was not possible to obtain family history. Surgical history: Mitral valve prolapse repair surgery, hiatal hernia surgery, skin graft left lower extremity, he does not have any prostheses in his body. Allergies: Cephalexin, erythromycin-based medication, chlorpromazine, oxcarbazepine. His reaction to these medications is not known but his caregiver believes that the reaction is not life-threatening. Social history: He lives in a custodial care facility and he does not smoke, drink or use any recreational drugs. He is mentally retarded and does not have a job. His medical guardian is called Amy Delarosa And his a status is full code. Imaging: Chest x-ray: It has shown hiatal hernia, thickened bronchial waite which is in favor of airway inflammation, there is no evidence of pneumonia. Comparing to the chest CT scan from 12/04/17 there is no new findings seen. Allergies/Medications Allergies: Coded Allergies: cephalexin (UNKNOWN 12/06/17) chlorpromazine (UNKNOWN 12/06/17) erythromycin base (UNKNOWN 12/06/17) oxcarbazepine (UNKNOWN 12/06/17) Home Med list Acetaminophen (Pain & Fever) 325 MG TABLET 2 TAB PO Q6H PRN PAIN/TEMP 100.5 TO 102 (Reported) Aspirin (Ecotrin*) 81 MG TABLET.DR 1 TAB PO DAILY HEART HEALTH (Reported) Bacitracin 500 UNIT/GRAM OINT...G. 1 QUINCY TOP BID PRN AA OR WOUND UNTIL DRY, SCABBED (Reported) apply to affected area(s) Chlorhexidine Gluconate (Periogard) 0.12 % MOUTHWASH 15 ML PO BID GINGIVAL HEALTH (Reported) Cyanocobalamin (Vitamin B-12) (B-12 Dots) 500 MCG TABLET 1 TAB PO DAILY VITAMIN SUPPORT (Reported) Docusate Sodium (Colace) 100 MG CAPSULE 1 CAP PO DAILY STOOL SOFTENER ( Reported) Doxazosin Mesylate (Cardura) 2 MG TABLET 1 TAB PO BID HEART (Reported) Ferrous Sulfate 325 MG (65 MG IRON) TABLET 1 TAB PO DAILY IRON, VITAMIN ( Reported) Fexofenadine HCl (Odilia Allergy) 180 MG TABLET 1 TAB PO DAILY ALLERGIES ( Reported) Guaifenesin (Diabetic Tussin Ex) 100 MG/5 ML LIQUID 10 ML PO Q4H PRN COUGH ( Reported) Hydrocortisone 1 % CREAM..G. 1 QUINCY TOP BID PRN ITCHY SMALL RASH/BUG BITES ( Reported) apply to affected area(s) Ibuprofen (Advil) 200 MG TABLET 2 TAB PO Q6H PRN PAIN/TEMP>102 (Reported) Lactulose 10 GRAM/15 ML SOLUTION 30 ML PO BID GI (Reported) Latanoprost 0.005 % DROPS 1 GTT OU QPM BOTH EYES (Reported) Levothyroxine Sodium 175 MCG TABLET 1 TAB PO DAILY AC THYROID (Reported) Lisinopril 2.5 MG TABLET 1 TAB PO DAILY BP (Reported) Loperamide HCl (Loperamide) 2 MG CAPSULE 2 CAP PO PRN DIARRHEA (Reported) Lorazepam 0.5 MG TABLET 1 TAB PO 11:00 AM MENTAL HEALTH (Reported) Lorazepam 0.5 MG TABLET 1 TAB PO BID ANXIETY (Reported) LORazepam (Ativan) 1 MG TAB 1 TAB PO QHS ANXIETY/SLEEP (Reported) Metoprolol Tartrate 25 MG TABLET 1 TAB PO BID HEART/BP (Reported) Omeprazole 20 MG CAPSULE.DR 1 CAP PO DAILY GI (Reported) Oxymetazoline HCl (Afrin) 0.05 % SPRAY 1 SPRAY NASB BID PRN NASAL CONGESTION (Reported) Pravastatin Sodium (Pravachol) 40 MG TABLET 1 TAB PO DAILY CHOLESTEROL ( Reported) Quetiapine Fumarate (Seroquel) 100 MG TABLET 1 TAB PO QAM MENTAL HEALTH ( Reported) Quetiapine Fumarate (Seroquel) 400 MG TABLET 1 TAB PO QHS MENTAL HEALTH ( Reported) Risperidone (Risperdal) 4 MG TABLET 1 TAB PO BID MENTAL HEALTH (Reported) Sennosides (Senokot) 8.6 MG TABLET 1 TAB PO DAILY CONSTIPATION (Reported) Sertraline HCl 50 MG TABLET 1 TAB PO DAILY MENTAL HEALTH (Reported) Solifenacin Succinate (Vesicare) 10 MG TABLET 1 TAB PO DAILY BLADDER ( Reported) Zinc Oxide/Deshler Starch (Caldesene Baby Powder) (Unknown Strength) POWDER 1 QUINCY TOP BID PRN MINOR RASH (Reported) Past History Travel History Traveled to [place] past 21 day No Medical History Neurological: MILD INTELLECTUAL DISABIL EENT: NONE Cardiovascular: CHRONIC PERIODONTITIS, CARDIAC HYPERTROPHY AORTIC STENOSIS MITRAL VALVE PROLASPE Respiratory: NONE Gastrointestinal: GERD, HIATAL HERNIA REFLUX DIVERTICULITIS DYSPHAGIA Hepatic: NONE Renal: HYDRONEPHROSIS STRICTURE OF URETERAL Musculoskeletal: NONE Psychiatric: anxiety, depression, SCHIZOPHRENIA Endocrine: diabetes, HYPOTHYROIDISM Blood Disorders: anemia, IRON DEFICIENCY History of MRSA: No History of VRE: No History of CDIFF: No Surgical History Surgical History: colon resection, aortic valve repair Past Family/Social History Family History Relations & Conditions if any Relation not specified for: *No pertinent family history Psychosocial History Services at Home: None Primary Language: German Living Will? full code Power of Oceanographic Meteorologist/HCP? Amy Noriega Review of Systems Review of Systems Constitutional: Reports: see HPI. EENTM: Reports: see HPI. Cardiovascular: Reports: see HPI. Respiratory: Reports: see HPI, cough, sputum production. GI: Reports: see HPI. Genitourinary: Reports: see HPI. Musculoskeletal: Reports: see HPI. Skin: Reports: see HPI. Neurological/Psychological: Reports: see HPI. Hematologic/Endocrine: Reports: see HPI. Exam & Diagnostic Data Last 24 Hrs of Vital Signs/I&O Vital Signs Date Time Temp Pulse Resp B/P B/P Pulse O2 O2 Flow FiO2 Mean Ox Delivery Rate 12/06 1808 98.4 73 20 114/55 95 Room Air 12/06 1540 98.3 71 18 113/56 96 Room Air 12/06 1427 96 Room Air 12/06 1355 72 18 99/50 96 12/06 1118 99.3 79 15 94/62 94 Room Air Room Air Intake & Output 12/06 1600 12/06 0800 08 0000 Intake Total 0 Output Total Balance 0 Intake, Oral 0 Patient 172 lb Weight Weight Reported by Patient Measurement Method Physical Exam General Appearance Alert, Cooperative, No Acute Distress, Mentally retarded Skin left lower extremity swelling and redness and discharge, Old scar on sternum from valve repair surgery Skin Temp/Moisture Exam: Warm/Dry Sepsis Skin Exam (color): Normal for Ethnicity HEENT Atraumatic, PERRLA Neck Supple, No JVD, No LAD Cardiovascular Regular Rate, Normal S1, Normal S2 Lungs generalized upper respiratory ronchi Abdomen Normal Bowel Sounds, Soft, No Tenderness Neurological intelectual disability, mental retardation Extremities Left lower extremity (gomez) redness, discharge, old scar on both sides of the calf Vascular Normal Pulses, Pulses Symmetrical Sepsis Peripheral Pulse Location: Dorsalis Pedis Sepsis Peripheral Pulse Exam: Normal Sepsis Cap Refill Exam: <2 Sec Assessment/Plan Assessment: 72-year-old male past medical history significant for mental retardation and intellectual disability, diabetes mellitus, hypertension, bipolar/anxiety disorder, hypothyroidism, urinary incontinence, previous left lower extremity cellulitis on August 2017, who is admitted in ER with recurrent left lower leg cellulitis. Based on history and physical examination the patient has stable vital signs and appears to have a recurrent left lower extremity cellulitis. He had a white BC of 10.4, normal electrolytes, lactic acid 1.8, normal LFT. Chest x-ray has shown hiatal hernia, thickened bronchial waite probably due to airway inflammation, and no evidence of pneumonia (no new findings compared to chest CT scan from 12/04/17). He does have a productive cough with yellow sputum and a history of fever for 2 days with temperature of 101.4. The patient will be admitted to general medicine floor. Home medications are restarted, IV Unasyn given. Problem list: Left lower leg cellulitis Diabetes mellitus Hypertension Anxiety/bipolar disorder Hypothyroidism Urinary incontinence GERD Mental retardation As Ranked By This Provider Problem List: 1. Cellulitis of left lower leg 2. Diabetes mellitus 3. Hypothyroidism 4. Full code status 5. Mood disorder Core Measures/Misc (01/17) Acute Coronary Syndrome ACS Diagnosis: No Congestive Heart Failure Congestive Heart Failure Diagnosis No Cerebrovascular Accident CVA/TIA Diagnosis: No VTE (View Protocol) VTE Risk Factors Age>40 No Mechanical VTE Prophylaxis d/t N/A MechProphylax Ordered No VTE Pharm Prophylaxis d/t NA PharmProphylax ordered Sepsis (View protocol) Sepsis Present: No If YES complete Sepsis Event Note If YES complete Sepsis Event Note Shwetha LISA,Nevaeh 12/06/17 1610: Core Measures/Misc (01/17) Sepsis (View protocol) If YES complete Sepsis Event Note If YES complete Sepsis Event Note Attending MD Review Statement Attending Statement Attending MD Statement: examined this patient, discuss w/resident/PA/VEGETABLE CANNER, agreed w/resident/PA/VEGETABLE CANNER, reviewed EMR data (avail), discussed with nursing, discussed with case mgmt, reviewed images Attending Assessment/Plan: 72-year-old male past medical history of intellectual disability and mental retardation who lives in a custodial, diet controlled glucose intolerance not officially diabetic, hypertension, hypothyroidism and previous valve surgery. He is here with complaints of fever, ongoing cough and left lower leg redness and tenderness. In the custodial his temperature was recorded to be as high as 101 and he had seen his PCP fairly recently for the complaints a CT chest was done which was unrevealing for bronchopneumonia. Will bring him in as a cellulitis, get blood cultures and start him on IV Unasyn, trend his white count. Hydrate him as he is mildly hypotensive. DVT prophylaxis. Jenelle Branch MD 12/06/172057: Core Measures/Misc (01/17) Sepsis (View protocol) If YES complete Sepsis Event Note If YES complete Sepsis Event Note Resident Review Statement Resident Statement: examined this patient, discussed with environmental health and safety intern, agreed with environmental health and safety intern Other Findings: Patient is a 72-year-old male with past medical history of intellectual disability coming from a custodial, history of schizophrenia, anxiety, bipolar disorder, hypertension, hiatal hernia, GERD, hypothyroidism, iron deficiency anemia, history of diabetes controlled without medication, last admission on for left lower extremity cellulitis presenting with chief complaint of fever and lower extremity pain and swelling. Patient is a poor historian. Patient's custodial caretakers were present at time of interview. Reports that patient has had 2 day history of fever and chills with a temp of 100.1. Reports that patient has had increased swelling of the left lower extremity and has noticed discharge that started 2 days prior to admission. Reports that patient has had cellulitis of his left lower extremity in the past during his last admission for which he was given a course of Augmentin. Patient reports that he does have lower extremity pain however does not further elaborate the extent of the pain. Staff report that this has been a chronic issue as the patient will scratch the area as its healing and also has urinary incontinence and often will wet his clothes and refuse to be changed. The area has been covered with bacitracin and dressing. Patient was previously seen in the wound center at [facility] for this issue in August. Patient and caretakers deny any recent nausea/vomitting, abdominal pain, shortness of breath, chest pain, dysuria, hematuria, diarrhea. Report patient does get constipated and is on a bowel regimen. Report patient has had a mild cough. Past medical history: As above Past surgical history: Left lower extremity skin grafts, mitral valve prolapse repair, hiatal hernia repair, patient has no hardware Social history: lives in custodial Person to contact for medical decisions: Amy Noriega: [phone] Patient the ED received IV Unasyn 1.5 mg 1 Physical exam: Gen.: Resting comfortably in bed no acute distress HEENT: Extraocular movement intact, pupils equal reactive to light and accommodation, moist mucous membranes CVS: Regular rate and rhythm, S1 and S2, no murmurs appreciated Lungs: Transmitted upper respiratory airway lung sounds Abdomen: Soft nontender nondistended positive bowel sounds Extremities: Left lower extremity swollen, erythematous, minimally tender to touch, mild calor, greenish weeping discharge, palpable lower extremity pulses. Vitals: MAXIMUM TEMPERATURE 99.3, heart rate 72-99, respiration rate 15-18, blood pressure initially 94/62, repeat blood pressure 113/56, saturating at 96% on room air Labs: WBC 10.4, H&H 12.6 and 37.2, platelets 190, sodium 138, potassium 4.4 chloride 104, bicarbonate 26, BUN 23, creatinine 0.9, glucose 133, lactic acid 1.2, LFTs within normal limits Imaging: Chest x-ray showing hiatal hernia, bronchial wall thickening indicative of airway inflammation Patient is 72-year-old male with left lower extremity skin graft, history of recurrent cellulitis presenting this admission with findings consistent cellulitis of his left lower extremity with erythema, tenderness, warmth, discharge and swelling of the left leg. Patient remains afebrile on admission, hemodynamically stable with no leukocytosis and is stable for admission to the general medical floor for management of the followin. Lower extremity cellulitis 2. Chronic conditions: schizophrenia, anxiety, bipolar disorder, hypertension, hiatal hernia, GERD, hypothyroidism, iron deficiency anemia, urinary incontinence Plan: Admit to the general medicine floor Vitals every shift Repeat CBC in a.m. Follow-up blood cultures Continue IV Unasyn 1.5 mg every 6 hours Wound care consult placed Continue home medications DVT prophylaxis: Lovenox, Alps on right lower extremity only Code: Full code Diet: Regular diet Person to contact for medical decisions: Amy Noriega: [phone]
--- NOTE | 2017-12-06 15:58 | ED GENERAL ADULT ---
History of Present Illness General Chief Complaint: General Adult Stated Complaint: "COUGH, FEVER, CELLULITIS TO L LEG" Source: old records, [facility] purification director Exam Limitations: poor historian, mental retardation Vital Signs & Intake/Output Vital Signs & Intake/Output Vital Signs Date Time Temp Pulse Resp B/P B/P Pulse O2 O2 Flow FiO2 Mean Ox Delivery Rate 12/06 1540 98.3 71 18 113/56 96 Room Air 12/06 1427 96 Room Air 12/06 1355 72 18 99/50 96 12/06 1118 99.3 79 15 94/62 94 Room Air Room Air Allergies Coded Allergies: cephalexin (UNKNOWN 12/06/17) chlorpromazine (UNKNOWN 12/06/17) erythromycin base (UNKNOWN 12/06/17) oxcarbazepine (UNKNOWN 12/06/17) Reconcile Medications Acetaminophen (Pain & Fever) 325 MG TABLET 2 TAB PO Q6H PRN PAIN/TEMP 100.5 TO 102 (Reported) Aspirin (Ecotrin*) 81 MG TABLET.DR 1 TAB PO DAILY HEART HEALTH (Reported) Bacitracin 500 UNIT/GRAM OINT...G. 1 QUINCY TOP BID PRN AA OR WOUND UNTIL DRY, SCABBED (Reported) apply to affected area(s) Chlorhexidine Gluconate (Periogard) 0.12 % MOUTHWASH 15 ML PO BID GINGIVAL HEALTH (Reported) Cyanocobalamin (Vitamin B-12) (B-12 Dots) 500 MCG TABLET 1 TAB PO DAILY VITAMIN SUPPORT (Reported) Docusate Sodium (Colace) 100 MG CAPSULE 1 CAP PO DAILY STOOL SOFTENER ( Reported) Doxazosin Mesylate (Cardura) 2 MG TABLET 1 TAB PO BID HEART (Reported) Ferrous Sulfate 325 MG (65 MG IRON) TABLET 1 TAB PO DAILY IRON, VITAMIN ( Reported) Fexofenadine HCl (Odilia Allergy) 180 MG TABLET 1 TAB PO DAILY ALLERGIES ( Reported) Guaifenesin (Diabetic Tussin Ex) 100 MG/5 ML LIQUID 10 ML PO Q4H PRN COUGH ( Reported) Hydrocortisone 1 % CREAM..G. 1 QUINCY TOP BID PRN ITCHY SMALL RASH/BUG BITES ( Reported) apply to affected area(s) Ibuprofen (Advil) 200 MG TABLET 2 TAB PO Q6H PRN PAIN/TEMP>102 (Reported) Lactulose 10 GRAM/15 ML SOLUTION 30 ML PO BID GI (Reported) Latanoprost 0.005 % DROPS 1 GTT OU QPM BOTH EYES (Reported) Levothyroxine Sodium 175 MCG TABLET 1 TAB PO DAILY AC THYROID (Reported) Lisinopril 2.5 MG TABLET 1 TAB PO DAILY BP (Reported) Loperamide HCl (Loperamide) 2 MG CAPSULE 2 CAP PO PRN DIARRHEA (Reported) Lorazepam 0.5 MG TABLET 1 TAB PO BID ANXIETY (Reported) LORazepam (Ativan) 1 MG TAB 1 TAB PO QHS ANXIETY/SLEEP (Reported) Metoprolol Tartrate 25 MG TABLET 1 TAB PO BID HEART/BP (Reported) Omeprazole 20 MG CAPSULE.DR 1 CAP PO DAILY GI (Reported) Oxymetazoline HCl (Afrin) 0.05 % SPRAY 1 SPRAY NASB BID PRN NASAL CONGESTION (Reported) Pravastatin Sodium (Pravachol) 40 MG TABLET 1 TAB PO DAILY CHOLESTEROL ( Reported) Quetiapine Fumarate (Seroquel) 100 MG TABLET 1 TAB PO QAM MENTAL HEALTH ( Reported) Quetiapine Fumarate (Seroquel) 400 MG TABLET 1 TAB PO QHS MENTAL HEALTH ( Reported) Risperidone (Risperdal) 4 MG TABLET 1 TAB PO BID MENTAL HEALTH (Reported) Sennosides (Senokot) 8.6 MG TABLET 1 TAB PO DAILY CONSTIPATION (Reported) Sertraline HCl 50 MG TABLET 1 TAB PO DAILY MENTAL HEALTH (Reported) Solifenacin Succinate (Vesicare) 10 MG TABLET 1 TAB PO DAILY BLADDER ( Reported) Zinc Oxide/[place] Starch (Caldesene Baby Powder) (Unknown Strength) POWDER 1 QUINCY TOP BID PRN MINOR RASH (Reported) Triage Note: PT TO ED FROM [facility] WITH STAFF MEMEBER FOR NON PRODUCTIVE COUGH X A COUPLE DAYS, BUT WORSE TODAY, FEVER AND ?CELLULITIS TO L LEG. 99.3 TEMP IN TRIAGE. 94/62 BP IN TRIAGE. Triage Nurses Notes Reviewed? yes HPI: Mr. Clemens is a 72-year-old male with a complex past medical history of mental retardation, diabetes, hypothyroidism, and was brought to the [facility] ED with reports of a 2 day fever and cough of the same duration. The reading back at the home facility was 101.2, was given Tylenol fever went down to 99.4. Of Note : The patient does have a left lower leg lesion, that is tender to touch, with increased warmth, and has had a prior admission for cellulitis this past August. The patient can ambulate, but does note pain on the left leg that worsens with ambulation. Patient is verbal, though history was primarily from records and purification director from [facility] due to his intellectual condition. He is currently afebrile, borderline hypotensive, with a probable cellulitis that as per purification director has progressively gotten worse over the past few days. There is no history of recent immobilization, travel, or recent surgery. (Sixto Elliott MD) Past History Travel History Traveled to [place] past 21 day No Medical History Any Pertinent Medical History? see below for history Neurological: MILD INTELLECTUAL DISABIL EENT: NONE Cardiovascular: CHRONIC PERIODONTITIS, CARDIAC HYPERTROPHY AORTIC STENOSIS MITRAL VALVE PROLASPE Respiratory: NONE Gastrointestinal: GERD, HIATAL HERNIA REFLUX DIVERTICULITIS DYSPHAGIA Hepatic: NONE Renal: HYDRONEPHROSIS STRICTURE OF URETERAL Musculoskeletal: NONE Psychiatric: anxiety, depression, SCHIZOPHRENIA Endocrine: diabetes, HYPOTHYROIDISM Blood Disorders: anemia, IRON DEFICIENCY History of MRSA: No History of VRE: No History of CDIFF: No Surgical History Surgical History: colon resection, aortic valve repair Psychosocial History Who do you live with Other (see notes) Services at Home None What is your primary language Icelandic Tobacco Use: Never used Family History Family History, If Any: Relation not specified for: *No pertinent family history Hx Contributory? Yes (Sixto Elliott MD) Review of Systems Review of Systems Constitutional: Reports: see HPI. (Sixto Elliott MD) Review of Systems Constitutional: Reports: no symptoms. EENTM: Reports: no symptoms. Respiratory: Reports: no symptoms. Cardiovascular: Reports: no symptoms. GI: Reports: no symptoms. Genitourinary: Reports: no symptoms. Musculoskeletal: Reports: no symptoms. Skin: Reports: see HPI, rash. Neurological/Psychological: Reports: no symptoms. Hematologic/Endocrine: Reports: no symptoms. Immunologic/Allergic: Reports: no symptoms. All Other Systems: Reviewed and Negative (Khanh Dill MD) Physical Exam Physical Exam General Appearance: alert, awake, obese, verbal, though not able to offer much in the way of history Comments: General: Pleasant, verbal, though not very communicative on his condition due to intellectual status. Head: Normocephalic, atraumatic. No signs of trauma. Eyes: Normal inspection bilaterally. Ears: Normal inspection bilaterally. Throat/mouth : Moist mucosa. No erythema seen. Neck: Supple, full range of motion. Heart: Regular rate and rhythm, no murmurs rubs or gallops. Lungs: Some transmitted upper airway sounds, good air entry and respiratory effort. Chest: Nontender. Back: Normal range of motion. Abdomen: Bowel sounds present, soft, nontender, nondistended. Extremities: Normal range of motion grossl. Left gomez shows a tender erythemathous lesion with no obvious trauma to the site. Increased warmth in area, though no purulence is observed. Neurologic: Cranial nerves grossly intact, speech is clear Skin: warm and dry. Psychiatric: Calm, cooperative, no apparent delusions or hallucinations. Patient speaks in simple sentences. Core Measures ACS in differential dx? No CVA/TIA Diagnosis: No Sepsis Present: No Sepsis Focused Exam Completed? Yes (Augusto Chan MD,[facility]) Progress Differential Diagnoses I considered the following diagnoses in my evaluation of the patient: [ Cellulitis, DVT] Plan of Care: Orders Procedure Date/time Status Regular Diet 12/06 D Active Patient Data 12/06 1532 Active OXYGEN SETUP (GEN) 12/06 1501 Active Saline Lock 12/06 1501 Active Misc Message 12/06 1501 Active ED Holding Orders 12/06 1501 Active Admit to inpatient 12/06 1501 Active Vital Signs 12/06 1501 Active Code Status 12/06 1501 Active BLOOD CULTURE 12/06 1410 Active Intake & Output 12/06 1235 Active LACTIC ACID 12/06 1156 Complete COMPREHENSIVE METABOLIC PANEL 12/06 1156 Complete CBC WITHOUT DIFFERENTIAL 12/06 1156 Complete Current Medications Sig/Deb Start time Last Medication Dose Stop Time Status Admin Ampicillin Sodium/ 1,500 MG Q6 12/06 1800 AC Sulbactam Sodium (Unasyn) Sodium Chloride 100 ML (Normal Saline 0.9%) Laboratory Tests 12/06/17 1456: Lactic Acid Cancelled 12/06/17 1235: Anion Gap 8, Estimated GFR > 60, BUN/Creatinine Ratio 25.6 H, Glucose 133 H, Lactic Acid 1.8, Calcium 8.9, Total Bilirubin 0.2, AST 27, ALT 39, Alkaline Phosphatase 100, Total Protein 6.7, Albumin 3.6, Globulin 3.1, Albumin/Globulin Ratio 1.2, CBC w Diff NO MAN DIFF REQ, RBC 3.88 L, MCV 95.9 H, MCH 32.3 H, MCHC 33.7, RDW 13.1, MPV 7.0 L, Gran % 72.7, Lymphocytes % 17.6 L, Monocytes % 6.2, Eosinophils % 2.9, Basophils % 0.6, Absolute Granulocytes 7.6 H, Absolute Lymphocytes 1.8, Absolute Monocytes 0.6, Absolute Eosinophils 0.3, Absolute Basophils 0.1 Microbiology 12/06 1430 BLOOD: Blood Culture - RECD 12/06 1415 BLOOD: Blood Culture - RECD 72-year-old male with mental retardation coming from a [facility] and a history of prior admission for cellulitis, comes in complaining of left gomez pain, fevers, tenderness and increased warmth in the same area, is concerning for cellulitis. Last admission was in August, and was discharged on Augmentin, with now a probable recurrence of same condition. Initial ED EKG: none (Augusto Chan MD,Sixto) Differential Diagnoses I considered the following diagnoses in my evaluation of the patient: (Khanh Dill MD) Departure Departure Disposition: STILL A PATIENT Condition: Stable Clinical Impression Primary Impression: Cellulitis of left lower leg Referrals: Kiana LISA,Rm Calderon (PCP/Family) Departure Forms: Customer Survey General Discharge Information Admission Note Spoke With: Nevaeh Tadeo MD Documentation of Exam: 72-year-old patient complex past medical history including diabetes, mental retardation, hypothyroidism, coming from a [facility] care with a history of fever in the setting of a chronic left lower gomez lesion concerning for cellulitis that will require IV antibiotics, possible ID consultation as well as blood cultures follow-up. Particularly in this patient with intellectual disability, where poor p.o. intake is not sufficient, nor guaranteed. (Sixto Elliott MD) Resident Co-Sign Statement Statement: ED Attending supervision documentation- x I saw and evaluated the patient. I have also reviewed all the pertinent lab results and diagnostic results. I agree with the findings and the plan of care as documented in the Resident's documentation. [] I have reviewed the ED Record and agree with the Resident's documentation. [] Additions or exceptions (if any) to the Resident's note and plan are summarized below: [] (Fuentes LISA,Khanh) Critical Care Note Critical Care Note Critical Care Time: 30-74 min (Augusto Chan MD,Sixto)
[2017-12-06 18:46] VITALS: BP 130/80
[2017-12-06] MEDS ORDERED: LORAZEPAM0.5 M1 PO (19:21)
[2017-12-06 22:18] VITALS: BP 140/78
[2017-12-07 06:29] VITALS: BP 110/60
--- NOTE | 2017-12-07 07:19 | PN- Housestaff ---
Scott German 12/07/1717: Subjective Follow-up For: Left lower gomez cellulitis Glucose intolerance (Hb A1 C normal range) Hypertension Anxiety/bipolar disorder Hypothyroidism GERD Subjective: Buck was lying back in his this morning when I visited him. He was in no acute distress. He complained about pain in his left leg. He had new dressing on his left gomez, with ALPS on the other gomez. He was not febrile, no chills. Based on the reports from his nurse he has been scratching his left lower leg. Review of Systems Constitutional: Reports: see HPI. Objective Last 24 Hrs of Vital Signs/I&O Vital Signs Date Time Temp Pulse Resp B/P B/P Pulse O2 O2 Flow FiO2 Mean Ox Delivery Rate 12/07 1409 98.1 69 20 100/65 96 Room Air / 0854 70 110/60 / 0629 97.8 70 20 110/60 95 Room Air 08/07 0000 Room Air / 2218 98.3 71 20 140/78 96 Room Air 08/06 2146 71 140/78 08/ 1846 98.5 76 20 130/80 95 Room Air 08/06 1840 96 Room Air 08/06 1808 98.4 73 20 114/55 95 Room Air 08/06 1540 98.3 71 18 113/56 96 Room Air Intake & Output 12/07 1600 07 0800 08/07 0000 Intake Total 320 320 Output Total Balance 320 320 Intake, IV 120 120 Intake, Oral 200 200 Number 1 2 Bowel Movements Patient 180 lb Weight Weight Reported by Patient Measurement Method Physical Exam General Appearance: Alert, He has intelectual disablity but is able to communicate Skin: No Rashes, He has cellulitis on left gomez Skin Temp/Moisture Exam: Warm/Dry Sepsis Skin Exam (color): Normal for Ethnicity HEENT: Atraumatic Neck: Supple Cardiovascular: Regular Rate, Normal S1, Normal S2 Lungs: Generalized upper respiratory ronchi Abdomen: Normal Bowel Sounds, Soft, No Tenderness Neurological: Mental retardation Extremities: Cellulitis on left gomez with scratch barclay Assessment/Plan Assessment: 72-year-old male past medical history significant for mental retardation and intellectual disability, diabetes mellitus, hypertension, bipolar/anxiety disorder, hypothyroidism, urinary incontinence, previous left lower extremity cellulitis on August 2017, who is admitted in ER with recurrent left lower leg cellulitis. Left lower extremity cellulitis (gomez): This is probably a recurrence cellulitis from which he had on August 2017, which has recurred due to constant excoriating by himself. Doppler sonography did not show any evidence of DVT. Plan: Wound care has seen the patient, Unasyn will be continued, sitter is placed in the room to stop the patient from scratching his wound. Productive cough: He has productive cough with yellow sputum, but imaging did not show any evidence for pneumonia. Plan: Guaifenesin for cough PRN Anxiety/schizophrenia/bipolar disorder: Plan: Pt is stable at this time on lorazepam and sertraline. He uses seroquel at night. We will continue these medications. GERD: Plan: Continue omeprazole. Constipation: Plan: Continue senna. Problem List: 1. Cellulitis of left lower leg 2. Hypothyroidism 3. Mood disorder 4. DVT prophylaxis 5. Full code status Pain Ratin Pain Location: LLE He is intellectually disabled and not able to grade his pain Pain Goal: Pain 4 or less Pain Plan: Ibuprofen 600 mg p.o. every 6h Tomorrow's Labs & Rationales: Nevaeh Cox MD 12/07/17 1002: Attending MD Review Statement Attending Statement Attending MD Statement: examined this patient, discuss w/resident/PA/[employer], agreed w/resident/PA/[employer], reviewed EMR data (avail), discussed with nursing, discussed with case mgmt, reviewed images Attending Assessment/Plan: Overall patient appears to be doing okay. He has a sitter now because he is constantly scratching his wound. He is a 72-year-old with mental retardation and intellectual disability who is here with a cellulitis. We have him on IV Unasyn and we are pending a wound care consult.
--- NOTE | 2017-12-07 08:21 | PN- Student ---
Subjective Subjective: Pt seen and examined at bedside. While pt does not verbalize much, he can answer yes and no questions. He reported pain in his LLE which felt like "bugs" in there and that he couldn't stop itching. He reported cough overnight. He denied chest pain and abdominal pain. Pt is ambulating with assist of one and tolerating a regular diet. He has constipation chronically with last BM yesterday. Objective Objective: Vital Signs Date Time Temp Pulse Resp B/P B/P Pulse O2 O2 Flow FiO2 Mean Ox Delivery Rate 12/07 0854 70 110/60 / 0629 97.8 70 20 110/60 95 Room Air 08/ 0000 Room Air / 2218 98.3 71 20 140/78 96 Room Air 08/ 2146 71 140/78 / 1846 98.5 76 20 130/80 95 Room Air 08/06 1840 96 Room Air 08/06 1808 98.4 73 20 114/55 95 Room Air 08/06 1540 98.3 71 18 113/56 96 Room Air 08/06 1427 96 Room Air 08/06 1355 72 18 99/50 96 08/06 1118 99.3 79 15 94/62 94 Room Air Room Air Intake & Output 12/07 1600 08 0800 08 0000 Intake Total 320 320 Output Total Balance 320 320 Intake, IV 120 120 Intake, Oral 200 200 Number 2 Bowel Movements Patient 180 lb Weight Weight Reported by Patient Measurement Method PE: Gen - NAD, comfortable, but continually scratching LLE Neuro - oriented to place and situation CV and Resp - Pt declined these, please see resident's note Abd - soft, nontender, nondistended Ext - RLE no edema, erythema, or tenderness; LLE has large excoriated wound over the gomez with pus exudate and erythema, same warmth as RLE; peripheral pulses palp and symmetrical BL Results Results: Laboratory Tests 12/07/17 0714: Anion Gap 7, Estimated GFR > 60, BUN/Creatinine Ratio 22.5, CBC w Diff NO MAN DIFF REQ, RBC 3.59 L, MCV 96.0 H, MCH 32.3 H, MCHC 33.6, RDW 13.2, MPV 7.3 L , Gran % 60.9, Lymphocytes % 24.1, Monocytes % 9.0, Eosinophils % 5.3 H, Basophils % 0.7, Absolute Granulocytes 4.2, Absolute Lymphocytes 1.7, Absolute Monocytes 0.6, Absolute Eosinophils 0.4, Absolute Basophils 0 12/06/17 1456: Lactic Acid Cancelled 12/06/17 1235: Anion Gap 8, Estimated GFR > 60, BUN/Creatinine Ratio 25.6 H, Glucose 133 H, Lactic Acid 1.8, Calcium 8.9, Total Bilirubin 0.2, AST 27, ALT 39, Alkaline Phosphatase 100, Total Protein 6.7, Albumin 3.6, Globulin 3.1, Albumin/Globulin Ratio 1.2, CBC w Diff NO MAN DIFF REQ, RBC 3.88 L, MCV 95.9 H, MCH 32.3 H, MCHC 33.7, RDW 13.1, MPV 7.0 L, Gran % 72.7, Lymphocytes % 17.6 L, Monocytes % 6.2, Eosinophils % 2.9, Basophils % 0.6, Absolute Granulocytes 7.6 H, Absolute Lymphocytes 1.8, Absolute Monocytes 0.6, Absolute Eosinophils 0.3, Absolute Basophils 0.1 Microbiology 12/06 1430 BLOOD: Blood Culture - RECD 12/06 141 BLOOD: Blood Culture - RECD Assessment/Plan Assessment: Assessment: Pt is a 72YOM who is mentally disabled and has a PMH significant for multiple psychiatric disorders including bipolar and schizophrenia, DM, HTN, GERD w/ hiatal hernia, hypothyroidism, diverticulosis, and cardiac hypertrophy. He is verbal with simple yes/no and simple sentences but relies fully on the [facility] staff for care. He presented to the ED yesterday brought in by care providers from his residence at [facility]. They indicated the patient was having LLE wound asso with 2 days of fever and nonproductive cough. He has had the lesion for some time and was admitted to [facility] in August for care of it. He was d/c and f/u with [facility] wound care, but every time healing begins to occur, the pt continually excoriates it. Wound is bandaged daily with bacitracin and light dressings but patient removes them. Wound is worsened by pt's incontinence and refusal of changing diapers on many occasions d/t psychiatric conditions and mental impairments. On admission, the pt's labs showed leukopenia of 3.80, anemia with H/H of 12.6/ 37.2, and are otherwise WNL. CXR showed thickened bronchial waite with airway inflammation though no pneumonia and hiatal hernia which were unchanged from CT chest from earlier this month. Pt's court appointed POA is Amy Noriega. She can be reached for consenting at [phone] according to [facility] staff. Problem List/Plan: 1. LLE Cellulitis Pt's cellulitis is of unknown etiology but is continually worsened by patient's excoriations. The wound seems to be chronic, but is also concerning for DVT as patient has limited activity during residence in snf. - LLE US to r/o DVT - wound care consult - continue Unasyn as pt is allergic to cephalosporins - Pt stops scratching when engaged in distracting activities. A sitter willl likely help the patient be distracted and will not prevent d/c to snf. - consider whether Mills cath may be useful in keeping pt's wound free from urine if incontinence continues to be an issue 2. Fever and Cough Pt is at high risk for URI which could be either viral or bacterial d/t residence and poor self-hygiene. - monitor vitals as pt is stable - guaifenesin for cough PRN 3. Psychiatric disorders Pt is stable at this time on lorazepam and sertraline. He uses seroquel at night. We will continue these medications. 4. GERD Continue omeprazole. 5. Constipation Continue senna. Diet: Regular DVT: ALP on R limb, lovenox Code: Full
[2017-12-07 08:39] LABS: ABSOLUTE BASOPHIL COUNT 0 /CUMM (0.0-0.2); ABSOLUTE EOSINOPHIL COUNT 0.4 /CUMM (0.0-0.7); ABSOLUTE GRANULOCYTE CT 4.2 /CUMM (1.4-6.5); ABSOLUTE LYMPH COUNT 1.7 /CUMM (1.2-3.4); ABSOLUTE MONOCYTE COUNT 0.6 /CUMM (0.10-0.60); BASOPHIL % 0.7 % (0.0-2.0); EOSINOPHIL % 5.3 % (0-5); GRANULOCYTE % 60.9 % (42.2-75.2); HEMATOCRIT 34.5 % (42-52); MEAN CORPUSCULAR HGB 32.3 PG (27.0-31.0); MEAN CORPUSCULAR HGB CONC 33.6 G/DL (33.0-37.0); MEAN PLATELET VOLUME 7.3 FL (7.4-10.4); PLATELET COUNT 168 /CUMM (130-400); RBC DISTRIBUTION WIDTH 13.2 % (11.5-14.5); RED BLOOD CELL CT 3.59 /CUMM (4.70-6.10); WHITE BLOOD CELL COUNT 6.9 /CUMM (4.8-10.8)
[2017-12-07 14:09] VITALS: BP 100/65
--- NOTE | 2017-12-07 15:01 | Cons- Wound Care ---
General Information and HPI Consulting Request Date of Consult: 12/07/17 Requested By: Nevaeh Tadeo MD Reason for Consult: Left leg cellulitis and excoriations History of Present Illness: Patient is 72-year-old with history of mental retardation diabetes aortic valve replacement admitted with concerns over recurrent left lower extremity cellulitis. He was admitted in August for cellulitis is again admitted with temperature [facility] the [facility] and erythema. Over the anterior aspect are indications of trauma related to scratching with multiple linear areas of skin breakdown secondary to trauma from his fingernails. There is no history of peripheral vascular disease. Of note he does have chronic productive cough and CAT scan of his chest suggests hiatal hernia with esophageal reflux suggesting a significant risk of aspiration Allergies/Medications Allergies: Coded Allergies: cephalexin (UNKNOWN 12/06/17) chlorpromazine (UNKNOWN 12/06/17) erythromycin base (UNKNOWN 12/06/17) oxcarbazepine (UNKNOWN 12/06/17) Home Med List: Acetaminophen (Pain & Fever) 325 MG TABLET 2 TAB PO Q6H PRN PAIN/TEMP 100.5 TO 102 (Reported) Aspirin (Ecotrin*) 81 MG TABLET.DR 1 TAB PO DAILY HEART HEALTH (Reported) Bacitracin 500 UNIT/GRAM OINT...G. 1 [place]INCY TOP BID PRN AA OR WOUND UNTIL DRY, SCABBED (Reported) apply to affected area(s) Chlorhexidine Gluconate (Periogard) 0.12 % MOUTHWASH 15 ML PO BID GINGIVAL HEALTH (Reported) Cyanocobalamin (Vitamin B-12) (B-12 Dots) 500 MCG TABLET 1 TAB PO DAILY VITAMIN SUPPORT (Reported) Docusate Sodium (Colace) 100 MG CAPSULE 1 CAP PO DAILY STOOL SOFTENER ( Reported) Doxazosin Mesylate (Cardura) 2 MG TABLET 1 TAB PO BID HEART (Reported) Ferrous Sulfate 325 MG (65 MG IRON) TABLET 1 TAB PO DAILY IRON, VITAMIN ( Reported) Fexofenadine HCl ([place] Allergy) 180 MG TABLET 1 TAB PO DAILY ALLERGIES ( Reported) Guaifenesin (Diabetic Tussin Ex) 100 MG/5 ML LIQUID 10 ML PO Q4H PRN COUGH ( Reported) Hydrocortisone 1 % CREAM..G. 1 QU[place]CY TOP BID PRN ITCHY SMALL RASH/BUG BITES ( Reported) apply to affected area(s) Ibuprofen (Advil) 200 MG TABLET 2 TAB PO Q6H PRN PAIN/TEMP>102 (Reported) Lactulose 10 GRAM/15 ML SOLUTION 30 ML PO BID GI (Reported) Latanoprost 0.005 % DROPS 1 GTT OU QPM BOTH EYES (Reported) Levothyroxine Sodium 175 MCG TABLET 1 TAB PO DAILY AC THYROID (Reported) Lisinopril 2.5 MG TABLET 1 TAB PO DAILY BP (Reported) Loperamide HCl (Loperamide) 2 MG CAPSULE 2 CAP PO PRN DIARRHEA (Reported) Lorazepam 0.5 MG TABLET 1 TAB PO 11:00 AM MENTAL HEALTH (Reported) Lorazepam 0.5 MG TABLET 1 TAB PO BID ANXIETY (Reported) LORazepam (Ativan) 1 MG TAB 1 TAB PO QHS ANXIETY/SLEEP (Reported) Metoprolol Tartrate 25 MG TABLET 1 TAB PO BID HEART/BP (Reported) Omeprazole 20 MG CAPSULE.DR 1 CAP PO DAILY GI (Reported) Oxymetazoline HCl (Afrin) 0.05 % SPRAY 1 SPRAY NASB BID PRN NASAL CONGESTION (Reported) Pravastatin Sodium (Pravachol) 40 MG TABLET 1 TAB PO DAILY CHOLESTEROL ( Reported) Quetiapine Fumarate (Seroquel) 100 MG TABLET 1 TAB PO QAM MENTAL HEALTH ( Reported) Quetiapine Fumarate (Seroquel) 400 MG TABLET 1 TAB PO QHS MENTAL HEALTH ( Reported) Risperidone (Risperdal) 4 MG TABLET 1 TAB PO BID MENTAL HEALTH (Reported) Sennosides (Senokot) 8.6 MG TABLET 1 TAB PO DAILY CONSTIPATION (Reported) Sertraline HCl 50 MG TABLET 1 TAB PO DAILY MENTAL HEALTH (Reported) Solifenacin Succinate (Vesicare) 10 MG TABLET 1 TAB PO DAILY BLADDER ( Reported) Zinc Oxide/[place] Starch (Caldesene Baby Powder) (Unknown Strength) POWDER 1 [place] TOP BID PRN MINOR RASH (Reported) Review of Systems Review of Systems: Noncontributory Past History Travel History Traveled to [place] past 21 day No Medical History Neurological: MILD INTELLECTUAL DISABIL EENT: NONE Cardiovascular: CHRONIC PERIODONTITIS, CARDIAC HYPERTROPHY AORTIC STENOSIS MITRAL VALVE PROLASPE Respiratory: NONE Gastrointestinal: GERD, HIATAL HERNIA REFLUX DIVERTICULITIS DYSPHAGIA Hepatic: NONE Renal: HYDRONEPHROSIS STRICTURE OF URETERAL Musculoskeletal: NONE Psychiatric: anxiety, depression, SCHIZOPHRENIA Endocrine: diabetes, HYPOTHYROIDISM Blood Disorders: anemia, IRON DEFICIENCY Cancer(s): NONE 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 full code Power of [employer] Instructor/HCP? Amy Leann Exam & Diagnostic Data Vital Signs and I&O Vital Signs Result Date Time Pulse Ox 96 12/07 1409 B/P 100/65 12/07 1409 O2 Delivery Room Air 12/07 1409 Temp 98.1 12/07 1409 Pulse 69 12/07 1409 Resp 20 12/07 1409 O2 Flow Rate Room Air 12/06 1118 Intake & Output 12/07 0000 12/06 1600 12/06 0800 Intake Total 320 0 Output Total Balance 320 0 Intake, IV 120 Intake, Oral 200 0 Number 2 Bowel Movements Patient 180 lb 172 lb Weight Weight Reported by Patient Reported by Patient Measurement Method Over the anterior aspect of the left lower extremity are multiple linear excoriations secondary to trauma from fingernail scratching his leg these measure approximately an area of 15 x 5 cm. Inferiorly is a well appears to be a partial thickness ulcer of approximately 2 x 2 centimeters. The posterior tibial pulses able to be palpated. There is periwound erythema. Assessment/Plan Impression/Plan: 72-year-old with history of diabetes admitted with what appears to be self- inflicted excoriations over the anterior aspect of the left lower extremity associated with soft tissue skin infection. Recommend leg elevation daily cleansing and topical Xeroform and gauze dressing change daily. Patient has a high index of suspicion for aspiration. We'll leave further evaluation to the primary care team Consult Acknowledgment - Thank you for your consult request.
--- NOTE | 2017-12-07 15:34 | ULTRASOUND REPORT ---
EXAMINATION: LEFT LOWER EXTREMITY DEEP VENOUS ULTRASOUND CLINICAL INFORMATION: Left lower extremity pain COMPARISON: Left lower extremity DVT study 09/28/2017 TECHNIQUE: Duplex Doppler imaging with compression maneuvers were performed of the left lower extremity deep venous system. FINDINGS: The visualized common femoral, femoral and popliteal veins demonstrate normal compressibility and color flow without evidence of venous thrombosis. Visualized portions of the calf veins demonstrate normal color fill-in suggesting patency. There is no evidence of a Enriquez's cyst. IMPRESSION: No evidence of deep venous thrombosis involving the left lower extremity.
[2017-12-07 22:04] VITALS: BP 120/60
--- NOTE | 2017-12-08 06:31 | PN- Housestaff ---
See Addendum Scott German 12/08/17 0630: Subjective Follow-up For: Left lower gomez cellulitis Glucose intolerance (Hb A1 C normal range) Hypertension Anxiety/bipolar disorder Hypothyroidism GERD Subjective: I visited the patient this morning while he was having breakfast in his chair. He was in his usual status, no acute distress. He still complained about pain in his left lower extremity. He had tracing on his left lower extremity. He is intellectually disabled and unable to express his feelings completely. Review of Systems Constitutional: Reports: see HPI. Objective Last 24 Hrs of Vital Signs/I&O Vital Signs Date Time Temp Pulse Resp B/P B/P Pulse O2 O2 Flow FiO2 Mean Ox Delivery Rate 12/08 1423 98.8 65 20 120/75 97 Room Air 12/08 0801 78 126/70 12/08 0801 78 126/70 12/08 0800 Room Air 12/08 0656 98.3 78 20 126/70 95 /08 0000 95 Room Air 12/07 2204 98.5 68 20 120/60 95 12/07 2148 78 120/60 Intake & Output 12/08 1600 12/08 0800 12/08 0000 Intake Total 240 620 Output Total Balance 240 620 Intake, IV 120 220 Intake, Oral 120 400 Number 0 5 Bowel Movements Patient 180 lb Weight Physical Exam General Appearance: Oriented X3, Intelectually disabled Assessment/Plan Assessment: 72-year-old male past medical history significant for mental retardation and intellectual disability, diabetes mellitus, hypertension, bipolar/anxiety disorder, hypothyroidism, urinary incontinence, previous left lower extremity cellulitis on August 2017, who is admitted in ER with recurrent left lower leg cellulitis. He had 9 loose bowel movements for which she have sent C. difficile for microbiology. Left lower extremity cellulitis (gomez): This is probably a recurrence cellulitis from which he had on August 2017, which has recurred due to constant excoriating by himself. Doppler sonography did not show any evidence of DVT. Plan: Wound care has seen the patient, IV Unasyn will be continued for today and will change to PO augmentin on discharge, sitter is placed in the room to stop the patient from scratching his wound. Productive cough: He has productive cough with yellow sputum, but imaging did not show any evidence for pneumonia. He might be at increased risk for aspiration, so swallow evaluation will be done today. Swallowing test was done at bedside, based on the primary results speech therapist did a modified barium swallow test, the results for this test was normal and he can have his current regular diet. Plan: Guaifenesin for cough PRN Anxiety/schizophrenia/bipolar disorder: Plan: Pt is stable at this time on lorazepam and sertraline. He uses seroquel at night. We will continue these medications. GERD: Plan: Continue omeprazole. Constipation: Plan: Continue senna. Problem List: 1. Cellulitis of left lower leg 2. Hypothyroidism 3. Mood disorder 4. DVT prophylaxis 5. Full code status Pain Ratin Pain Location: LLE He is intellectually disabled and not able to grade his pain Pain Goal: Pain 4 or less Pain Plan: Ibuprofen 600 mg p.o. every 6h Antibiotic therapy Tomorrow's Labs & Rationales: YVONNE Tadeo MD,Nevaeh 12/08/17 0954: Attending MD Review Statement Attending Statement Attending MD Statement: examined this patient, discuss w/resident/PA/SPRAY MAKER, agreed w/resident/PA/SPRAY MAKER, reviewed EMR data (avail), discussed with nursing, discussed with case mgmt, reviewed images Attending Assessment/Plan: Patient is in good spirits. He is on IV Unasyn for a lower extremity cellulitis. Appreciate wound care consult and we are getting a swallow eval today. He is extremely focused on his diet and I worry about him being compliant should swallow recommend a modified diet. Will continue local wound care, ultrasound was negative for DVT and we anticipate discharge in a.m. if stable.
[2017-12-08 06:56] VITALS: BP 126/70
--- NOTE | 2017-12-08 10:13 | PN- Student ---
Subjective Subjective: Pt seen and examined this morning. He had no acute overnight events and was enjoying his coffee. While he is intellectually disabled, pt clearly indicated that he had no headache, chest pain, difficulty breathing, abdominal pain. He has a cough still. He has LLE pain but it is better than yesterday. He describes that he had diarrhea yesterday but not this morning. Sitter with the patient said that he has not been scratching since she arrived early this morning and that he seems much more comfortable than yesterday. Objective Objective: Vital Signs Date Time Temp Pulse Resp B/P B/P Pulse O2 O2 Flow FiO2 Mean Ox Delivery Rate 12/08 0801 78 126/70 12/08 0801 78 126/70 12/08 0656 98.3 78 20 126/70 95 /08 0000 95 Room Air 12/07 2204 98.5 68 20 120/60 95 07 2148 78 120/60 12/07 1409 98.1 69 20 100/65 96 Room Air Intake & Output 12/08 1600 12/08 0800 12/08 0000 Intake Total 240 620 Output Total Balance 240 620 Intake, IV 120 220 Intake, Oral 120 400 Number 0 5 Bowel Movements PE: Gen - NAD, comfortable in chair Neuro - AOx4 CV - systolic ejection murmur heard best at apex, no gallops, RRR Pulm - CTA BL Abd - soft, nontender, nondistended Ext - LLE bandaged and patient is not excoriating it at this time, will check when bandaged is removed, 2+ PT/DP pulses BL, mild L sided edema Results Results: Laboratory Tests 12/07/17 0714: Anion Gap 7, Estimated GFR > 60, BUN/Creatinine Ratio 22.5, CBC w Diff NO MAN DIFF REQ, RBC 3.59 L, MCV 96.0 H, MCH 32.3 H, MCHC 33.6, RDW 13.2, MPV 7.3 L , Gran % 60.9, Lymphocytes % 24.1, Monocytes % 9.0, Eosinophils % 5.3 H, Basophils % 0.7, Absolute Granulocytes 4.2, Absolute Lymphocytes 1.7, Absolute Monocytes 0.6, Absolute Eosinophils 0.4, Absolute Basophils 0 Assessment/Plan Assessment: Assessment: Pt is a 72YOM who is mentally disabled and has a PMH significant for multiple psychiatric disorders including bipolar and schizophrenia, HTN, GERD w/ hiatal hernia, hypothyroidism, diverticulosis, and cardiac hypertrophy. He is verbal with simple yes/no and simple sentences but relies fully on the [facility] staff for care. He presented to the ED 2 days ago brought in by care providers from his residence at [facility]. They indicated the patient was having LLE wound asso with 2 days of fever and nonproductive cough. He has had the lesion for some time and was admitted to [facility] in August for care of it. He was d/c and f/u with [facility] wound care, but every time healing begins to occur, the pt continually excoriates it. Wound is bandaged daily with bacitracin and light dressings but patient removes them. Wound is worsened by pt's incontinence and refusal of changing diapers on many occasions d/t psychiatric conditions and mental impairments. On admission, the pt's labs showed leukopenia of 3.80, anemia with H/H of 12.6/ 37.2, and are otherwise WNL. CXR showed thickened bronchial waite with airway inflammation though no pneumonia and hiatal hernia which were unchanged from CT chest from earlier this month. LLE US on 12/07/17 r/o DVT. Pt's court appointed POA is Amy Noriega. She can be reached for consenting at [phone] according to [facility] staff. Problem List/Plan: 1. LLE Cellulitis Pt's cellulitis is of unknown etiology but is continually worsened by patient's excoriations. - wound care recommended daily dressings with xeroform and gauze - continue Unasyn day 3 as pt is allergic to cephalosporins - Sitter reports that pt has not been scratching today - if pt continues to remain stable, pt can returrn to [facility] tomorrow with PO abx 2. Fever and Cough Pt is at high risk for URI which could be either viral or bacterial d/t residence and poor self-hygiene. Pt is also at high risk for aspiration, both micro and macro, due to intellectual disability. - vitally stable, afebrile since admission - guaifenesin for cough PRN - swallow eval today d/t aspiration risk - if pt is stable, he can return to [facility] tomorrow 3. Psychiatric disorders Pt is stable at this time on lorazepam, risperidone, and sertraline. He uses seroquel at night. We will continue these medications. 4. GERD Continue omeprazole. 5. Diarrhea Pt is having diarrhea at this time. This could be chronic d/t lactulose or antibiotic associated. There's also concern for C diff. - hold senna - stool for C diff toxin - maintain adequate hydration Diet: Regular DVT: ALP on R limb, lovenox Code: Full
--- NOTE | 2017-12-08 11:24 | Discharge Summary ---
Visit Information Visit Dates Admission Date: 12/06/17 Discharge Date: 12/09/17 Hospital Course Course Attending Physician: Shwetha LISA,Nevaeh Strauss Primary Care Physician: Kiana LISA,Rm Calderon Hospital Course: 72-year-old male past medical history significant for mental retardation and intellectual disability, diabetes mellitus, hypertension, bipolar/anxiety disorder, hypothyroidism, urinary incontinence, previous left lower extremity cellulitis on August 2017, who is admitted in ER with recurrent left lower leg cellulitis. Left lower extremity cellulitis (gomez): This is probably a recurrence cellulitis from which he had on August 2017, which has recurred due to constant excoriating by himself. Doppler sonography did not show any evidence of DVT. Plan: Wound care has seen the patient, IV Unasyn changed to PO augmentin on discharge, sitter was placed in the room to stop the patient from scratching his wound. Productive cough: He had productive cough with yellow sputum, but imaging did not show any evidence for pneumonia. He was at increased risk for aspiration, so modified barium swallowing test was done , the results for this test was normal and he can have his current regular diet, with precautions for slow eating, using a straw to drink liquids, and direct supervision while eating. Plan: Guaifenesin for cough PRN Anxiety/schizophrenia/bipolar disorder: Plan: Pt is stable at this time on lorazepam and sertraline. He uses seroquel at night. We will continue these medications. GERD: Plan: Continue omeprazole. Constipation: Plan: Continue senna. Allergies: Coded Allergies: cephalexin (UNKNOWN 12/06/17) chlorpromazine (UNKNOWN 12/06/17) erythromycin base (UNKNOWN 12/06/17) oxcarbazepine (UNKNOWN 12/06/17) Significant Procedures: Modified barium swallow test: normal results Disposition Summary Disposition Principal Diagnosis: Left lower extremity cellulitis Additional Diagnosis: Glucose intolerance (Hb A1 C normal range) Hypertension Anxiety/bipolar disorder Hypothyroidism GERD Discharge Disposition: home or self care Discharge Instructions General Discharge Information Code Status: Full Code Patient's Diet: Regular diet Liquids with a stroke, slow rate of food intake, direct supervision Patient's Activity: As tolerates with assist of 1. Follow-Up Instructions/Appts: Recommend leg elevation daily cleansing and topical Xeroform and gauze dressing change daily. Complete course of antibiotics Please eat and drink slowly, Liquids via straw, requires direct supervision. Medications at Discharge Discharge Medications: Continue taking these medications: Solifenacin Succinate (Vesicare) 10 MG TABLET 1 Tablet ORAL DAILY Comments: Last Taken: 12/09/17 Time: 8:30AM Quetiapine Fumarate (Seroquel) 100 MG TABLET 1 Tablet ORAL Every Morning Comments: Last Taken: 12/08/17 Time: 9:30 PM Docusate Sodium (Colace) 100 MG CAPSULE 1 Capsule ORAL DAILY Comments: Last Taken: 12/08/17 Time: 8:00AM Omeprazole (Omeprazole) 20 MG CAPSULE.DR 1 Capsule ORAL DAILY Comments: Last Taken: 12/09/17 Time: 8:30AM Lisinopril (Lisinopril) 2.5 MG TABLET 1 Tablet ORAL DAILY Comments: Last Taken: 12/09/17 Time: 8:30AM Ferrous Sulfate (Ferrous Sulfate) 325 MG (65 MG IRON) TABLET 1 Tablet ORAL DAILY Comments: NOT GIVEN IN HOSPITAL Cyanocobalamin (Vitamin B-12) (B-12 Dots) 500 MCG TABLET 1 Tablet ORAL DAILY Comments: Last Taken: 09/29/17 Time: 1100AM NOT GIVEN THIS ADMISSION Sennosides (Senokot) 8.6 MG TABLET 1 Tablet ORAL DAILY Comments: Last Taken: 12/08/17 Time: 9:30 PM Levothyroxine Sodium (Levothyroxine Sodium) 175 MCG TABLET 1 Tablet ORAL DAILY BEFORE BREAKFAST Comments: Last Taken: 12/09/17 Time: 7:00AM Fexofenadine HCl ([place] Allergy) 180 MG TABLET 1 Tablet ORAL DAILY Comments: NOT GIVEN IN HOSPITAL Lorazepam (Lorazepam) 0.5 MG TABLET 1 Tablet ORAL TWICE DAILY Comments: Last Taken: 12/09/17 Time: 8:30 AM LORazepam (Ativan) 1 MG TAB 1 Tablet ORAL TAKE AT BEDTIME Comments: Last Taken: 12/09/17 Time: 8:30AM Chlorhexidine Gluconate (Periogard) 0.12 % MOUTHWASH 15 [place] ORAL TWICE DAILY Comments: Last Taken: 12/09/17 Time: 8:30AM Lactulose (Lactulose) 10 GRAM/15 ML SOLUTION 30 [place]ilit[place] ORAL TWICE DAILY Comments: Last Taken: 12/08/17 Time: 8:00AM Doxazosin Mesylate (Cardura) 2 MG TABLET 1 Tablet ORAL TWICE DAILY Comments: Last Taken: 12/09/17 Time: 8:30AM Metoprolol Tartrate (Metoprolol Tartrate) 25 MG TABLET 1 Tablet ORAL TWICE DAILY Comments: Last Taken: 12/09/17 Time: 8:30AM Risperidone (Risperdal) 4 MG TABLET 1 Tablet ORAL TWICE DAILY Comments: Last Taken: 12/09/17 Time: 8:30AM Latanoprost (Latanoprost) 0.005 % DROPS 1 Drop Both Eyes Every night Comments: Last Taken: 12/08/17 Time: 9:30 PM Pravastatin Sodium (Pravachol) 40 MG TABLET 1 Tablet ORAL DAILY Comments: Last Taken: 12/08/17 Time: 5:00PM Sertraline HCl (Sertraline HCl) 50 MG TABLET 1 Tablet ORAL DAILY Comments: Last Taken: 12/09/17 Time: 8:30AM Quetiapine Fumarate (Seroquel) 400 MG TABLET 1 Tablet ORAL TAKE AT BEDTIME Comments: Last Taken: 12/08/17 Time: 9:30 PM Zinc Oxide/[place] Starch (Caldesene Baby Powder) (Unknown Strength) POWDER 1 Application On the skin TWICE DAILY as needed for MINOR RASH Comments: NOT GIVEN IN HOSPITAL Oxymetazoline HCl (Afrin) 0.05 % SPRAY 1 [place] Both sides of nose TWICE DAILY as needed for NASAL CONGESTION Comments: NOT GIVEN IN HOSPITAL Guaifenesin (Diabetic Tussin Ex) 100 MG/5 ML LIQUID 10 [place] ORAL Q4H as needed for COUGH Comments: Last Taken: 12/09/17 Time: 8:30AM Hydrocortisone (Hydrocortisone) 1 % CREAM..G. 1 Application On the skin TWICE DAILY as needed for ITCHY SMALL RASH/BUG BITES Instructions: apply to affected area(s) Comments: NOT GIVEN IN HOSPITAL Loperamide HCl (Loperamide) 2 MG CAPSULE 2 Capsule ORAL as needed for DIARRHEA Comments: NOT GIVEN IN HOSPITAL Ibuprofen (Advil) 200 MG TABLET 2 Tablet ORAL Q6H as needed for PAIN/TEMP>102 Comments: Last Taken: 12/08/17 Time: 8:00AM Bacitracin (Bacitracin) 500 UNIT/GRAM OINT...G. 1 Application On the skin TWICE DAILY as needed for AA OR WOUND UNTIL DRY, SCABBED Instructions: apply to affected area(s) Comments: NOT GIVEN IN HOSPITAL Acetaminophen (Pain & Fever) 325 MG TABLET 2 Tablet ORAL Q6H as needed for PAIN/TEMP 100.5 TO 102 Comments: NOT GIVEN IN HOSPITAL Aspirin (Ecotrin*) 81 MG TABLET.DR 1 Tablet ORAL DAILY Comments: Last Taken: 12/09/17 Time: 8:30AM Lorazepam (Lorazepam) 0.5 MG TABLET 1 Tablet ORAL 11:00 AM Comments: Last Taken: 12/09/17 Time: 8:30 AM Start taking the following new medications: Amoxicillin/Potassium Clav (Augmentin 875-125 Tablet) 875 MG-125 MG TABLET 875 Tablet ORAL EVERY 12 HOURS Qty = 8 No Refills Instructions: Please complete entire course of antibiotic as directed. Comments: LNOT GIVEN IN HOSPITA Copies To: Kiana LISA,Rm Calderon
[2017-12-08 14:23] VITALS: BP 120/75
--- NOTE | 2017-12-08 14:50 | Patient Discharge Instructions ---
Discharge Instructions General Discharge Information You were seen/treated for: Left leg (gomez) cellulitis Watch for these problems: If the wound and cellulitis on left gomez does not improve or worsens please call your PCP, If you have fever or worsening cough, please call your PCP Do not soak the wound: Yes Daily wet to dry dressings: No Special Instructions: Recommend leg elevation daily cleansing and topical Xeroform and gauze dressing change daily. Complete course of antibiotics Please eat and drink slowly, Liquids via straw, requires direct supervision. Acute Coronary Syndrome Inclusion Criteria At DC or during hospital stay patient has or had the following: ACS DIAGNOSIS No Discharge Core Measures Meds if any: Prescribed or Continued at Discharge Meds if any: NOT Prescribed or Continued at Discharge Congestive Heart Failure Inclusion Criteria At DC or during hospital stay patient has or had the following: CHF DIAGNOSIS No Discharge Core Measures Meds if any: Prescribed or Continued at Discharge Meds if any: NOT Prescribed or Continued at Discharge Cerebrovascular accident Inclusion Criteria At DC or during hospital stay patient has or had the following: CVA/TIA Diagnosis No Discharge Core Measures Meds if any: Prescribed or Continued at Discharge Meds if any: NOT Prescribed or Continued at Discharge Venous thromboembolism Inclusion Criteria VTE Diagnosis No VTE Type NONE VTE Confirmed by (Test) NONE Discharge Core Measures - Per Current guidelines, there needs to be overlap - treatment for the first 5 days of Warfarin therapy. - If discharged on Warfarin prior to 5 days of - overlap therapy, the patient will need to be - assessed for post discharge needs including - *Post discharge parental anticoagulation - *Warfarin and/or parental anticoagulation education - *Follow up date to check INR post discharge At least 5 days overlap therapy as Inpatient No Meds if any: Prescribed or Continued at Discharge Note: Overlap Therapy is Warfarin and Anticoagulant Meds if any: NOT Prescribed or Continued at Discharge
--- NOTE | 2017-12-08 16:53 | RADIOLOGY REPORT ---
EXAMINATION: XR MODIFIED BARIUM SWALLOW CLINICAL INFORMATION: Coughing with fluids. Presumptive diagnosis of aspiration. COMPARISON: None. TECHNIQUE: A modified barium swallow was performed with speech pathologist in attendance. Pur?e, nectar thick, thin, bread, and cracker consistencies were given to the patient and the swallowing mechanism was observed fluoroscopically with several spot films taken using the last image hold feature. FLUOROSCOPY TIME: 1 minute 52 seconds. FINDINGS: With puree, nectar and thin consistencies, the oropharyngeal phase of swallowing is normal with no laryngeal or nasopharyngeal aspiration seen. No significant pooling of contrast is noted in the valleculae or piriform sinuses is seen with these consistencies. With bread and cracker consistencies, piecemeal deglutition is seen and slight residual in the valleculae is noted. No aspiration or penetration is seen. IMPRESSION: 1. 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 2. Otherwise unremarkable exam. 3. Speech pathologist assessment issued separately.
[2017-12-08 22:48] VITALS: BP 140/60
--- NOTE | 2017-12-09 06:29 | PN- Housestaff ---
Scott German 12/09/17 0629: Subjective Follow-up For: Left lower gomez cellulitis Glucose intolerance (Hb A1 C normal range) Hypertension Anxiety/bipolar disorder Hypothyroidism GERD Subjective: I visited Buck this morning, he was sitting in his chair, in no acute distress. He was able to mention that he did not have pain this morning given his left lower extremity. He asked for more coffee. Based on reports from nursing he had no more loose bowel movement, no fever, no chills, no diarrhea, no constipation, no abdominal pain, no chest pain. Review of Systems Constitutional: Reports: see HPI. Objective Last 24 Hrs of Vital Signs/I&O Vital Signs Date Time Temp Pulse Resp B/P B/P Pulse O2 O2 Flow FiO2 Mean Ox Delivery Rate 12/09 1234 97.9 75 20 112/60 12/09 0800 Room Air 12/09 0636 97.9 75 20 112/60 93 Room Air 12/08 2248 98.9 74 20 140/60 94 Room Air Intake & Output 12/09 1600 12/09 0800 12/09 0000 Intake Total 100 100 Output Total Balance 100 100 Intake, IV 100 100 Number 2 Bowel Movements Physical Exam General Appearance: Alert, Oriented X3, Cooperative, No Acute Distress Skin: No Rashes Skin Temp/Moisture Exam: Warm/Dry Sepsis Skin Exam (color): Normal for Ethnicity HEENT: Atraumatic Neck: Supple, No JVD Cardiovascular: Regular Rate, Normal S1, Normal S2 Lungs: Normal Air Movement, Upper airway ronchi Abdomen: Normal Bowel Sounds, Soft, No Tenderness Neurological: Intelectually disabled Extremities: Cellilitis on left lower leg, improved comparing to yesterday. Vascular: Normal Pulses, Pulses Symmetrical Assessment/Plan Assessment: 72-year-old male past medical history significant for mental retardation and intellectual disability, diabetes mellitus, hypertension, bipolar/anxiety disorder, hypothyroidism, urinary incontinence, previous left lower extremity cellulitis on August 2017, who is admitted in ER with recurrent left lower leg cellulitis. Left lower extremity cellulitis (gomez): This is probably a recurrence cellulitis from which he had on August 2017, which has recurred due to constant excoriating by himself. Doppler sonography did not show any evidence of DVT. Plan: Wound care has seen the patient, IV Unasyn changed to PO augmentin on discharge, sitter was placed in the room to stop the patient from scratching his wound. Productive cough: He had productive cough with yellow sputum, but imaging did not show any evidence for pneumonia. He was at increased risk for aspiration, so modified barium swallowing test was done , the results for this test was normal and he can have his current regular diet, with precautions for slow eating, using a straw to drink liquids, and direct supervision while eating. Plan: Guaifenesin for cough PRN Anxiety/schizophrenia/bipolar disorder: Plan: Pt is stable at this time on lorazepam and sertraline. He uses seroquel at night. We will continue these medications. GERD: Plan: Continue omeprazole. Constipation: Plan: Continue senna. Problem List: 1. Cellulitis of left lower leg 2. Mood disorder 3. DVT prophylaxis 4. Hypothyroidism Pain Ratin Pain Location: NA Pain Goal: Pain 4 or less Pain Plan: Ibuprofen 600 mg p.o. every 6h Antibiotic therapy Tomorrow's Labs & Rationales: Nevaeh Cox MD 12/09/17 1037: Attending MD Review Statement Attending Statement Attending MD Statement: examined this patient, discuss w/resident/PA/FOUNTAIN SERVER, agreed w/resident/PA/FOUNTAIN SERVER, reviewed EMR data (avail), discussed with nursing, discussed with case mgmt, reviewed images Attending Assessment/Plan: Patient feels well. He passed his modified barium swallow. The plan is discharge today with close outpatient follow-up. He will go on Augmentin to complete a total of 7 days for the cellulitis.
[2017-12-09 06:36] VITALS: BP 112/60
--- NOTE | 2017-12-09 08:29 | PN- Wound Care ---
Subjective Subjective: Patient remains afebrile and cultures remain negative. Objective Vital Signs and I&Os Vital Signs Result Date Time Pulse Ox 93 12/10 635 B/P 112/60 12/10 635 O2 Delivery Room Air 12/10 635 Temp 97.9 12/10 635 Pulse 75 12/10 635 Resp 20 12/10 635 O2 Flow Rate Room Air 12/08 1600 Intake & Output 12/09 0000 12/08 1600 12/08 0800 Intake Total 100 240 Output Total Balance 100 240 Intake, IV 100 120 Intake, Oral 120 Number 2 0 Bowel Movements Patient 180 lb Weight Exam of the left lower extremity show initial wounds to have healed significantly there appears to be new areas of linear scratching nursing reported occurred overnight. Impression/Plan Impression/Plan Impression/Plan: 72-year-old with cognitive deficits as recurrent self-inflicted excoriations over the pretibial surface of the left lower extremity. Cellulitis is improving. Recommend continue Xeroform and bulky dressing to protect from further trauma. Consider maximum trimming of his fingernails to prevent further trauma to his legs.
[2017-12-09] MEDS ORDERED: AUGMENTIN 875-1 EACH PO ×3 (11:29→11:41)
--- NOTE | 2017-12-09 11:45 | PN- Student ---
Subjective Subjective: Pt seen and examined in chair beside his bed. He had no acute events overnight. He reports decreased cough and LLE pain and pruritis. He denied headache, chest pain, abdominal pain, diarrhea. He is tolerating his regular diet and has been eating slowly according to his sitter. Objective Objective: Vital Signs Date Time Temp Pulse Resp B/P B/P Pulse O2 O2 Flow FiO2 Mean Ox Delivery Rate 12/10 799 Room Air 12/09 0636 97.9 75 20 112/60 93 Room Air 12/08 2248 98.9 74 20 140/60 94 Room Air 12/08 1600 Room Air 12/08 1423 98.8 65 20 120/75 97 Room Air Intake & Output 12/09 1600 12/09 0812/09 0000 Intake Total 100 100 Output Total Balance 100 100 Intake, IV 100 100 Number 2 Bowel Movements PE Gen - NAD Pysch - appropriate affect Neuro - AOx4 CV - sys ejection murmur best heard at apex, no rubs or gallops Pulm - CTA BL Abd - soft, nontender, nondistended Ext - warm and well perfused, LLE wound is wrapped with no surrounding erythema, PT/DP 2+ BL Results Results: Laboratory Tests 12/07/17 0714: Anion Gap 7, Estimated GFR > 60, BUN/Creatinine Ratio 22.5, CBC w Diff NO MAN DIFF REQ, RBC 3.59 L, MCV 96.0 H, MCH 32.3 H, MCHC 33.6, RDW 13.2, MPV 7.3 L , Gran % 60.9, Lymphocytes % 24.1, Monocytes % 9.0, Eosinophils % 5.3 H, Basophils % 0.7, Absolute Granulocytes 4.2, Absolute Lymphocytes 1.7, Absolute Monocytes 0.6, Absolute Eosinophils 0.4, Absolute Basophils 0 12/06/17 1456: Lactic Acid Cancelled 12/06/17 1235: Anion Gap 8, Estimated GFR > 60, BUN/Creatinine Ratio 25.6 H, Glucose 133 H, Lactic Acid 1.8, Calcium 8.9, Total Bilirubin 0.2, AST 27, ALT 39, Alkaline Phosphatase 100, Total Protein 6.7, Albumin 3.6, Globulin 3.1, Albumin/Globulin Ratio 1.2, CBC w Diff NO MAN DIFF REQ, RBC 3.88 L, MCV 95.9 H, MCH 32.3 H, MCHC 33.7, RDW 13.1, MPV 7.0 L, Gran % 72.7, Lymphocytes % 17.6 L, Monocytes % 6.2, Eosinophils % 2.9, Basophils % 0.6, Absolute Granulocytes 7.6 H, Absolute Lymphocytes 1.8, Absolute Monocytes 0.6, Absolute Eosinophils 0.3, Absolute Basophils 0.1 Microbiology 12/08 1012 STOOL: Clostridium difficile Toxin A & B - COLB 12/06 1430 BLOOD: Blood Culture - RES 12/06 1415 BLOOD: Blood Culture - RES Assessment/Plan Assessment: Assessment: Pt is a 72YOM who is mentally disabled and has a PMH significant for multiple psychiatric disorders including bipolar and schizophrenia, HTN, GERD w/ hiatal hernia, hypothyroidism, diverticulosis, and cardiac hypertrophy. He is verbal with simple yes/no and simple sentences but relies fully on the [facility] staff for care. He presented to the ED 3 days ago brought in by care providers from his residence at [facility]. They indicated the patient was having LLE wound asso with 2 days of fever and nonproductive cough. He has had the lesion for some time and was admitted to [facility] in August for care of it. He was d/c and f/u with [facility], but every time healing begins to occur, the pt continually excoriates it. Wound is bandaged daily with bacitracin and light dressings but patient removes them. Wound is worsened by pt's incontinence and refusal of changing diapers on many occasions d/t psychiatric conditions and mental impairments. On admission, the pt's labs showed leukopenia of 3.80, anemia with H/H of 12.6/ 37.2, and are otherwise WNL. CXR showed thickened bronchial waite with airway inflammation though no pneumonia and hiatal hernia which were unchanged from CT chest from earlier this month. LLE US on 12/07/17 r/o DVT. Pt's court appointed POA is Amy Noriega. She can be reached for consenting at [phone] according to [facility] staff. Problem List/Plan: 1. LLE Cellulitis Pt's cellulitis is of unknown etiology but is continually worsened by patient's excoriations. - wound care recommended daily dressings with xeroform and gauze - Switch to PO augmentin for total of 7 days abx - Sitter reports that pt has not been scratching today - D/c to [facility] today and f/u Dr. Olguin outpatient 2. Fever and Cough Pt is at high risk for URI which could be either viral or bacterial d/t residence and poor self-hygiene. Pt is also at high risk for aspiration, both micro and macro, due to intellectual disability. - vitally stable, afebrile since admission - guaifenesin for cough PRN - swallow eval yesterday showed no aspiration and that pt can have regular diet with frequent sips from straw and full supervision for meals - d/c to [facility] 3. Psychiatric disorders Pt is stable at this time on lorazepam, risperidone, and sertraline. He uses seroquel at night. We will continue these medications. 4. GERD Continue omeprazole. 5. Diarrhea Pt reports no diarrhea yesterday or this morning. This has resolved. As pt is not toxic appearing, Cdiff is remote concern. Diet: Regular DVT: ALP on R limb, lovenox Code: Full
[2017-12-09 12:34] VITALS: BP 112/60
== END 2017-12-09 13:35 | DRG 603 ==
LOC: ERH 11:08 → ERHI 15:01 → 2NA 15:01 → ENRESERV 16:18 → ENTRNSPT 18:03 → EDTRNSPTSTS 18:27 → EDTRNSPT 18:27 → 2NA 18:35 → CMPTRNSPT 18:52 → ENPENDDIS 12-09 12:06 → ENTRNSPT 12-09 13:21 → EDTRNSPTSTS 12-09 13:26 → 2NA 12-09 13:35 → CMPTRNSPT 12-09 13:51
PROVIDERS: Physician Assistant; Student in an Organized Health Care Education/Training Program
DX: L03.116 Cellulitis of left lower limb (principal); E11.9 Type 2 diabetes mellitus without complications; M41.9 Scoliosis, unspecified; F20.9 Schizophrenia, unspecified; I10 Essential (primary) hypertension; F31.9 Bipolar disorder, unspecified; K21.9 Gastro-esophageal reflux disease without esophagitis; E03.9 Hypothyroidism, unspecified; R32 Unspecified urinary incontinence; I95.9 Hypotension, unspecified; K44.9 Diaphragmatic hernia without obstruction or gangrene; F70 Mild intellectual disabilities; K59.09 Other constipation; R05 Cough; E74.39 Other disorders of intestinal carbohydrate absorption; Z95.2 Presence of prosthetic heart valve; Z90.49 Acquired absence of other specified parts of digestive tract; Z88.8 Allergy status to other drugs, medicaments and biological substances
CPT/HCPCS: 2NAP; 36592; 71046; 74230; 82436; 87040; J1650

== ENCOUNTER 2017-12-13 12:05 | Emergency (ER) | payer OTHER, MEDICARE ==
[2017-12-13 15:19] LABS: ABSOLUTE BASOPHIL COUNT 0 /CUMM (0.0-0.2); ABSOLUTE EOSINOPHIL COUNT 0.4 /CUMM (0.0-0.7); ABSOLUTE GRANULOCYTE CT 5.3 /CUMM (1.4-6.5); ABSOLUTE LYMPH COUNT 1.5 /CUMM (1.2-3.4); ABSOLUTE MONOCYTE COUNT 0.6 /CUMM (0.10-0.60); BASOPHIL % 0.5 % (0.0-2.0); EOSINOPHIL % 4.6 % (0-5); GRANULOCYTE % 68.1 % (42.2-75.2); HEMATOCRIT 38.2 % (42-52); MEAN CORPUSCULAR HGB 31.9 PG (27.0-31.0); MEAN CORPUSCULAR HGB CONC 33.3 G/DL (33.0-37.0); MEAN CORPUSCULAR VOLUME 95.8 FL (80.0-94.0); MEAN PLATELET VOLUME 7.2 FL (7.4-10.4); PLATELET COUNT 206 /CUMM (130-400); RBC DISTRIBUTION WIDTH 13.7 % (11.5-14.5); RED BLOOD CELL CT 3.98 /CUMM (4.70-6.10); WHITE BLOOD CELL COUNT 7.7 /CUMM (4.8-10.8)
[2017-12-13] MEDS ORDERED: DOXYCYCLINE HY100 M4 PO (18:05)
--- NOTE | 2017-12-13 18:05 | ED GENERAL ADULT ---
History of Present Illness General Chief Complaint: General Adult Stated Complaint: SENT BACK FOR WORSENING CELLULITIS, D/C LAST WK Source: patient, [facility] staff Exam Limitations: no limitations Vital Signs & Intake/Output Vital Signs & Intake/Output Vital Signs Date Time Temp Pulse Resp B/P B/P Pulse O2 O2 Flow FiO2 Mean Ox Delivery Rate 12/13 1827 97.3 77 20 132/68 97 Room Air Room Air 12/13 1213 98.6 70 16 94 Room Air Allergies Coded Allergies: cephalexin (UNKNOWN 12/06/17) chlorpromazine (UNKNOWN 12/06/17) erythromycin base (UNKNOWN 12/06/17) oxcarbazepine (UNKNOWN 12/06/17) Reconcile Medications Acetaminophen (Pain & Fever) 325 MG TABLET 2 TAB PO Q6H PRN PAIN/TEMP 100.5 TO 102 (Reported) Amoxicillin/Potassium Clav (Augmentin 875-125 Tablet) 875 MG-125 MG TABLET 875 TAB PO Q12 Cellulitis Please complete entire course of antibiotic as directed. Aspirin (Ecotrin*) 81 MG TABLET.DR 1 TAB PO DAILY HEART HEALTH (Reported) Bacitracin 500 UNIT/GRAM OINT...G. 1 QUINCY TOP BID PRN AA OR WOUND UNTIL DRY, SCABBED (Reported) apply to affected area(s) Chlorhexidine Gluconate (Periogard) 0.12 % MOUTHWASH 15 ML PO BID GINGIVAL HEALTH (Reported) Cyanocobalamin (Vitamin B-12) (B-12 Dots) 500 MCG TABLET 1 TAB PO DAILY VITAMIN SUPPORT (Reported) Docusate Sodium (Colace) 100 MG CAPSULE 1 CAP PO DAILY STOOL SOFTENER ( Reported) Doxazosin Mesylate (Cardura) 2 MG TABLET 1 TAB PO BID HEART (Reported) Doxycycline Hyclate 100 MG TABLET 1 TAB PO BID cellulitis Ferrous Sulfate 325 MG (65 MG IRON) TABLET 1 TAB PO DAILY IRON, VITAMIN ( Reported) Fexofenadine HCl (Odilia Allergy) 180 MG TABLET 1 TAB PO DAILY ALLERGIES ( Reported) Guaifenesin (Diabetic Tussin Ex) 100 MG/5 ML LIQUID 10 ML PO Q4H PRN COUGH ( Reported) Hydrocortisone 1 % CREAM..G. 1 QUINCY TOP BID PRN ITCHY SMALL RASH/BUG BITES ( Reported) apply to affected area(s) Ibuprofen (Advil) 200 MG TABLET 2 TAB PO Q6H PRN PAIN/TEMP>102 (Reported) Lactulose 10 GRAM/15 ML SOLUTION 30 ML PO BID GI (Reported) Latanoprost 0.005 % DROPS 1 GTT OU QPM BOTH EYES (Reported) Levothyroxine Sodium 175 MCG TABLET 1 TAB PO DAILY AC THYROID (Reported) Lisinopril 2.5 MG TABLET 1 TAB PO DAILY BP (Reported) Loperamide HCl (Loperamide) 2 MG CAPSULE 2 CAP PO PRN DIARRHEA (Reported) Lorazepam 0.5 MG TABLET 1 TAB PO BID ANXIETY (Reported) LORazepam (Ativan) 1 MG TAB 1 TAB PO QHS ANXIETY/SLEEP (Reported) Lorazepam 0.5 MG TABLET 1 TAB PO 11:00 AM MENTAL HEALTH (Reported) Metoprolol Tartrate 25 MG TABLET 1 TAB PO BID HEART/BP (Reported) Omeprazole 20 MG CAPSULE.DR 1 CAP PO DAILY GI (Reported) Oxymetazoline HCl (Afrin) 0.05 % SPRAY 1 SPRAY NASB BID PRN NASAL CONGESTION (Reported) Pravastatin Sodium (Pravachol) 40 MG TABLET 1 TAB PO DAILY CHOLESTEROL ( Reported) Quetiapine Fumarate (Seroquel) 100 MG TABLET 1 TAB PO QAM MENTAL HEALTH ( Reported) Quetiapine Fumarate (Seroquel) 400 MG TABLET 1 TAB PO QHS MENTAL HEALTH ( Reported) Risperidone (Risperdal) 4 MG TABLET 1 TAB PO BID MENTAL HEALTH (Reported) Sennosides (Senokot) 8.6 MG TABLET 1 TAB PO DAILY CONSTIPATION (Reported) Sertraline HCl 50 MG TABLET 1 TAB PO DAILY MENTAL HEALTH (Reported) Solifenacin Succinate (Vesicare) 10 MG TABLET 1 TAB PO DAILY BLADDER ( Reported) Zinc Oxide/[place] Starch (Caldesene Baby Powder) (Unknown Strength) POWDER 1 QUINCY TOP BID PRN MINOR RASH (Reported) Triage Note: 72M RETURNS FOR [facility]EEVAL OF LLE CELLULITIS. REPORTS PAIN AND RELAY ASSOCIATE REPORTS THAT HE HAS BEEN SCRATCHING AT IT CAUSING IT TO BECOME RAW. UNSURE OF DRAINAGE. 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 AFEBRILE RATTLING W COUGH IN TRIAGE, UNABLE TO EXPECTORATE. O2 SAT 94%, DENIES SOB BUT APPEARS PALE Triage Nurses Notes Reviewed? yes Onset: Gradual Duration: day(s): Timing: constant HPI: 72-year-old male with a history of intellectual delay, cardiomyopathy, diabetes, anemia, hypothyroid, anxiety, depression [facility] with staff for recheck of left lower extremity cellulitis. Patient was recently admitted for IV antibiotics for his cellulitis from December 03 to December 06. retirement staff thinks that his cellulitis looks worse since he was discharged. The penitentiary staff attributed to worsening appearance to persistent scratching of the area by the patient. He was discharged home on a course of Augmentin which he finished today. Has a follow-up appointment with the wound clinic in a week. Daily wound dressings are changed by the penitentiary staff. Denies fevers, nausea, vomiting. (Teetee Shea) Past History Travel History Traveled to [place] past 21 day No Medical History Any Pertinent Medical History? see below for history Neurological: MILD INTELLECTUAL DISABIL EENT: NONE Cardiovascular: CHRONIC PERIODONTITIS, CARDIAC HYPERTROPHY AORTIC STENOSIS MITRAL VALVE PROLASPE Respiratory: NONE Gastrointestinal: GERD, HIATAL HERNIA REFLUX DIVERTICULITIS DYSPHAGIA Hepatic: NONE Renal: HYDRONEPHROSIS STRICTURE OF URETERAL Musculoskeletal: NONE Psychiatric: anxiety, depression, SCHIZOPHRENIA Endocrine: diabetes, HYPOTHYROIDISM Blood Disorders: anemia, IRON DEFICIENCY Cancer(s): NONE DIRECTOR OF COMMUNITY SERVICES/Reproductive: NONE History of MRSA: No History of VRE: No History of CDIFF: No Surgical History Surgical History: colon resection, aortic valve repair Psychosocial History Who do you live with Other (see notes) Services at Home None What is your primary language Hebrew Tobacco Use: Never used Family History Family History, If Any: Relation not specified for: *No pertinent family history Hx Contributory? No (Teetee Shea) Review of Systems Review of Systems Constitutional: Reports: no symptoms. EENTM: Reports: no symptoms. Respiratory: Reports: no symptoms. Cardiovascular: Reports: no symptoms. GI: Reports: no symptoms. Genitourinary: Reports: no symptoms. Musculoskeletal: Reports: no symptoms. Skin: Reports: see HPI. Neurological/Psychological: Reports: no symptoms. Hematologic/Endocrine: Reports: no symptoms. Immunologic/Allergic: Reports: no symptoms. All Other Systems: Reviewed and Negative (Teetee Shea) Physical Exam Physical Exam General Appearance: well developed/nourished, no apparent distress, alert, awake , comfortable Head: atraumatic, normal appearance Eyes: Bilateral: normal appearance. Neck: normal inspection Respiratory: normal breath sounds, lungs clear Cardiovascular: regular rate/rhythm Gastrointestinal: soft, non-tender Back: normal inspection Extremities: normal range of motion Neurologic/Psych: awake, alert, normal gait, normal mood/affect Skin: warm/dry, erythema with excoriation to the entire anterior aspect of the left gomez. No purulent drainage. Sensation intact. Motor strength exam limited due to patient's intellectual delay. Under strict range of motion at the knee and ankle joint. Distal pulses 2+. Patient is able to bear weight and ambulate with a steady gait. Core Measures ACS in differential dx? No CVA/TIA Diagnosis: No Sepsis Present: No Sepsis Focused Exam Completed? No (Rosario ARMENTA,Teetee) Progress Differential Diagnoses I considered the following diagnoses in my evaluation of the patient: [ Cellulitis, low concern for abscess versus sepsis versus necrotizing fasciitis] Plan of Care: Orders Procedure Date/time Status LACTIC ACID 12/13 1520 Active BLOOD CULTURE 12/13 1337 Active LACTIC ACID 12/13 1220 Complete COMPREHENSIVE METABOLIC PANEL 12/13 1220 Complete CBC WITHOUT DIFFERENTIAL 12/13 1220 Complete Laboratory Tests 12/13/17 1500: Anion Gap 14, Estimated GFR > 60, BUN/Creatinine Ratio 23.8, Glucose 102 H, Lactic Acid 1.6, Calcium 9.5, Total Bilirubin 0.4, AST 37, ALT 57, Alkaline Phosphatase 105, Total Protein 7.7, Albumin 4.2, Globulin 3.5, Albumin/Globulin Ratio 1.2, CBC w Diff NO MAN DIFF REQ, RBC 3.98 L, MCV 95.8 H, MCH 31.9 H, MCHC 33.3, RDW 13.7, MPV 7.2 L, Gran % 68.1, Lymphocytes % 19.0 L, Monocytes % 7.8, Eosinophils % 4.6, Basophils % 0.5, Absolute Granulocytes 5.3, Absolute Lymphocytes 1.5, Absolute Monocytes 0.6, Absolute Eosinophils 0.4, Absolute Basophils 0 Microbiology 12/13 1516 BLOOD: Blood Culture - RECD 12/13 1500 BLOOD: Blood Culture - RECD Labs show a normal WBC and normal lactate Vital signs are within normal limits Patient is well-appearing and has been afebrile with no nausea or vomiting We will trial doxycycline to cover for MRSA Discussed with the ED attending and the patient is cleared for discharge home. We'll follow-up with the wound clinic as scheduled. Given strict return precautions for any fevers, nausea, vomiting, purulent drainage, worsening erythema, or any other new or concerning symptoms. Initial ED EKG: none (Teetee Shea) Departure Departure Disposition: HOME OR SELF CARE Condition: Stable Clinical Impression Primary Impression: Cellulitis Referrals: Kiana LISA,Rm Calderon (PCP/Family) Additional Instructions: Begin taking doxycycline. Follow up with the wound clinic as scheduled. Return to the emergency department for any new or worsening symptoms. Departure Forms: Customer Survey General Discharge Information Prescriptions: Current Visit Scripts Doxycycline Hyclate 1 TAB PO BID #20 TAB (Teetee Shea) PA/GALLERY OR MUSEUM ATTENDANT Co-Sign Statement Statement: ED Attending supervision documentation- x I saw and evaluated the patient. I have also reviewed all the pertinent lab results and diagnostic results. I agree with the findings and the plan of care as documented in the PA's/GALLERY OR MUSEUM ATTENDANT's documentation. [] I have reviewed the ED Record and agree with the PA's/GALLERY OR MUSEUM ATTENDANT's documentation. [] Additions or exceptions (if any) to the PAs/GALLERY OR MUSEUM ATTENDANT's note and plan are summarized below: [] (Fuentes LISA,Khanh) Critical Care Note Critical Care Note Critical Care Time: non-applicable (Teetee Shea)
[2017-12-13 18:27] VITALS: BP 132/68
== END 2017-12-13 18:26 ==
LOC: ERH 12:05
PROVIDERS: Physician Assistant
DX: L03.116 Cellulitis of left lower limb (principal); E11.9 Type 2 diabetes mellitus without complications; D50.9 Iron deficiency anemia, unspecified; E03.9 Hypothyroidism, unspecified; F41.9 Anxiety disorder, unspecified; F32.9 Major depressive disorder, single episode, unspecified; K21.9 Gastro-esophageal reflux disease without esophagitis
CPT/HCPCS: 87040